=== PATIENT | female | born 1940 | race American Indian/Alaskan Native ===

== ENCOUNTER 2016-09-28 15:39 | Emergency (ER) | payer MEDICARE ==
[2016-09-28 17:01] VITALS: BP 138/86
--- NOTE | 2016-09-28 20:15 | Emergency Department Report ---
ED Rash HPI - HPI Chief Complaint: Skin Rash Stated Complaint: POSS SHINGLES RASH Duration: 3 Days Rash Symptoms: Yes Blistering, No Itching, No Facial Swelling, No Tongue/Oral Swelling, No Breathing Difficulties, No Choking Sensation, No Wheezing/Dyspnea, No Fever, No Lightheaded, No Malaise Severity: moderate Other History: 76-year-old female comes in for complaint of painful rash on her back coming around to her chest area. This rash started on Monday. She denies any fever or chills she is accompanied by her daughter that she lives with. ED Review of Systems ROS: Stated complaint: POSS SHINGLES RASH Other details as noted in HPI Constitutional: no symptoms reported Skin: rash. denies: pruritus Neurological: denies: headache ED Past Medical Hx - Past Medical History Hx Hypertension: Yes Hx Congestive Heart Failure: Yes (cardiomyopathy) Additional medical history: A-FIB / LEAKY VALVES/ CARDIOVASCULAR DISEASE - Surgical History Additional Surgical History: EXP LAPAROSCOPY, TUBAL LIGATION, HEART CATH - Social History Smoking Status: Former Smoker Substance Use Type: None - Medications Home Medications: Home Medications Medication Instructions Recorded Confirmed Last Taken Type ALBUTEROL Inhaler [ProAir HFA 2 puff IH QID PRN #1 inhalation 01/18/15 Unknown Rx Inhaler] Albuterol *Only Ed* [Proventil 2.5 mg IH Q4H PRN #25 nebu 01/18/15 Unknown Rx 0.5% NEBS] Azithromycin [Zithromax] 500 mg PO QDAY #3 tablet 01/18/15 Unknown Rx Prednisone [Prednisone 10 mg 10 mg PO .TAPER #1 tab.ds.pk 01/18/15 Unknown Rx (6-Day Pack, 21 Tabs)] Naproxen [Naprosyn TAB] 500 mg PO BID #60 tablet 09/28/16 Unknown Rx Valacyclovir HCl [Valtrex] 1,000 mg PO BID #20 tab 09/28/16 Unknown Rx oxyCODONE [Roxicodone TAB] 5 mg PO Q6HR PRN #6 tablet 09/28/16 Unknown Rx Rash Exam - Exam General: Vital signs noted. No distress. Alert and acting appropriately. Lungs: Yes Good Air Exchange Heart: Yes Regular Skin: Yes Bulla(e) (rashes on the right back to the right front not crossing the midline.) Other: Positive: Abdomen Normal, Neurologic Normal, Musculoskeletal Normal ED Course Vital Signs 09/28/16 16:58 Temperature 98.5 F Pulse Rate 95 H Respiratory 18 Rate Blood Pressure 138/86 O2 Sat by Pulse 97 Oximetry ED Medical Decision Making - Medical Decision Making Patient's been evaluated by this provider in fast track. Will place patient on valacyclovir for shingles. We'll have her follow-up with her primary care provider we will offer oxycodone and ibuprofen for pain control. Critical care attestation.: If time is entered above; I have spent that time in minutes in the direct care of this critically ill patient, excluding procedure time. ED Disposition Clinical Impression: Shingles rash Qualifiers: Herpes zoster complications: without complications Qualified Code(s): B02.9 - Zoster without complications Disposition: DISCHARGED TO HOME OR SELFCARE Is pt being admited?: No Does the pt Need Aspirin: No Condition: Stable Instructions: Herpes Zoster (ED) Additional Instructions: Complete all medications as prescribed. Very importantly to follow to primary care provider. Prescriptions: Naproxen [Naprosyn TAB] 500 mg PO BID #60 tablet oxyCODONE [Roxicodone TAB] 5 mg PO Q6HR PRN #6 tablet PRN Reason: Pain Valacyclovir HCl [Valtrex] 1,000 mg PO BID #20 tab Referrals: HARJIT MIRANDA MD [Primary Care Provider] - 3-5 Days
== END 2016-09-28 20:29 | disposition home or self-care (01) ==
LOC: ED 15:39
DX: B02.9 Zoster without complications (principal); I10 Essential (primary) hypertension; I50.9 Heart failure, unspecified; I48.91 Unspecified atrial fibrillation; Z87.891 Personal history of nicotine dependence
CPT/HCPCS: 99282

== ENCOUNTER 2018-03-29 10:00 | Inpatient (IN) | payer MEDICARE ==
[2018-03-29 11:37] LABS: Basophils % (Auto) 0.5 % (0.0-1.8); Eosinophils # (Auto) 0.1 K/mm3 (0.0-0.4); Eosinophils % (Auto) 1.7 % (0.0-4.3); Hematocrit 37.9 % (30.3-42.9); Hemoglobin 12.4 gm/dl (10.1-14.3); Lymphocytes # (Auto) 0.8 K/mm3 (1.2-5.4); Lymphocytes % (Auto) 12.4 % (13.4-35.0); Mean Corpuscular HGB Conc 33 % (30-34); Mean Corpuscular Hemoglobin 29 pg (28-32); Mean Corpuscular Volume 90 fl (79-97); Monocytes # (Auto) 0.6 K/mm3 (0.0-0.8); Monocytes % (Auto) 8.6 % (0.0-7.3); Platelet Count 110 K/mm3 (140-440); Red Cell Distribution Width 15.8 % (13.2-15.2)
--- NOTE | 2018-03-29 11:41 | Emergency Department Report ---
"ED General Adult HPI - General Chief complaint: Medical Clearance Stated complaint: DEFIB. ACTIVATED Time Seen by Provider: 03/29/18 11:03 Source: patient, EMS Mode of arrival: Stretcher Limitations: No Limitations - History of Present Illness Initial comments: 77-year-old female with a past medical history cardiac valve replacement 2 ( pig valve) defibrillator, PAD stent placement to bilateral lower extremities, atrial fibrillation (on coumadin), and crit myopathy presents to the hospital complaining of possible defibrillator discharge 2. This occurred just prior to arrival approximately 9 AM. Patient denied any preceding symptoms. She felt to back to back shots which cause discomfort in her chest associated with the shock. Patient has some mild lightheadedness and was startled after the shocks. She denies any persistent chest pain, nausea, vomiting, diaphoresis, syncope, or persistent lightheadedness. Defibrillator was placed 2.5 years ago and this is the first episode of discharge. She received a call 1 month ago from e|tab/mixer blender that she needed to have her defibrillator rechecked due to possible dysfunction. Her mixer blender is Dr. Anthony Calderon associated with [facility] - Related Data Previous Rx's Medication Instructions Recorded Last Taken Type ALBUTEROL Inhaler [ProAir HFA 2 puff IH QID PRN #1 inhalation 01/18/15 Unknown Rx Inhaler] Albuterol *Only Ed* [Proventil 2.5 mg IH Q4H PRN #25 nebu 01/18/15 Unknown Rx 0.5% NEBS] Azithromycin [Zithromax] 500 mg PO QDAY #3 tablet 01/18/15 Unknown Rx Prednisone [Prednisone 10 mg 10 mg PO .TAPER #1 tab.ds.pk 01/18/15 Unknown Rx (6-Day Pack, 21 Tabs)] Naproxen [Naprosyn TAB] 500 mg PO BID #60 tablet 09/28/16 Unknown Rx Valacyclovir HCl [Valtrex] 1,000 mg PO BID #20 tab 09/28/16 Unknown Rx oxyCODONE [Roxicodone TAB] 5 mg PO Q6HR PRN #6 tablet 09/28/16 Unknown Rx Allergies Allergy/AdvReac Type Severity Reaction Status Date / Time No Known Allergies Allergy Unverified 01/18/15 12:05 ED Review of Systems ROS: Stated complaint: DEFIB. ACTIVATED Other details as noted in HPI Comment: All other systems reviewed and negative ED Past Medical Hx - Past Medical History Hx Hypertension: Yes Hx Congestive Heart Failure: Yes (cardiomyopathy) Additional medical history: A-FIB / LEAKY VALVES/ CARDIOVASCULAR DISEASE. PAD - Surgical History Additional Surgical History: EXP LAPAROSCOPY, TUBAL LIGATION, HEART CATH. Bilateral leg stents secondary to PAD - Social History Smoking Status: Never Smoker Substance Use Type: None - Medications Home Medications: Home Medications Medication Instructions Recorded Confirmed Last Taken Type ALBUTEROL Inhaler [ProAir HFA 2 puff IH QID PRN #1 inhalation 01/18/15 Unknown Rx Inhaler] Albuterol *Only Ed* [Proventil 2.5 mg IH Q4H PRN #25 nebu 01/18/15 Unknown Rx 0.5% NEBS] Azithromycin [Zithromax] 500 mg PO QDAY #3 tablet 01/18/15 Unknown Rx Prednisone [Prednisone 10 mg 10 mg PO .TAPER #1 tab.ds.pk 01/18/15 Unknown Rx (6-Day Pack, 21 Tabs)] Naproxen [Naprosyn TAB] 500 mg PO BID #60 tablet 09/28/16 Unknown Rx Valacyclovir HCl [Valtrex] 1,000 mg PO BID #20 tab 09/28/16 Unknown Rx oxyCODONE [Roxicodone TAB] 5 mg PO Q6HR PRN #6 tablet 09/28/16 Unknown Rx ED Physical Exam - General Limitations: No Limitations - Other Other exam information: General: No limitations, patient is alert in no acute distress Head exam: Atraumatic, normocephalic Eyes exam: Normal appearance, pupils equal reactive to light, extraocular movements intact ENT: Moist mucous membrane, normal oropharynx Neck exam: Normal inspection, full range of motion, no meningismus nontender Respiratory exam: Clear to auscultation bilateral, no wheezes, rales, crackles. Sternotomy scar to chest wall Cardiovascular: Irregular rhythm, normal rate Abdomen: Soft, nondistended, and nontender, with normal bowel sounds, no rebound, or guarding Extremity: Full range of motion normal inspection no deformity Back: Normal Inspection, full range of motion, no tenderness Neurologic: Alert, oriented x3, cranial nerves intact, no motor or sensory deficit Psychiatric: normal affect, normal mood Skin: Warm, dry, intact ED Course Vital Signs 03/29/18 03/29/18 03/29/18 10:09 10:15 10:18 Temperature 97.7 F Pulse Rate 62 66 Respiratory 9 L 18 Rate Blood Pressure 136/64 136/64 O2 Sat by Pulse 91 98 98 Oximetry 03/29/18 03/29/18 03/29/18 10:30 10:45 11:00 Temperature Pulse Rate 63 64 88 Respiratory 12 18 22 Rate Blood Pressure 145/64 154/73 131/83 O2 Sat by Pulse 96 98 97 Oximetry 03/29/18 03/29/18 03/29/18 11:15 11:30 11:46 Temperature Pulse Rate 70 75 78 Respiratory 19 11 L 18 Rate Blood Pressure 139/73 147/81 95/74 O2 Sat by Pulse 97 98 97 Oximetry 03/29/18 03/29/18 03/29/18 12:00 12:15 12:30 Temperature Pulse Rate 82 68 67 Respiratory 21 22 17 Rate Blood Pressure 136/78 138/77 129/74 O2 Sat by Pulse 100 99 98 Oximetry 03/29/18 03/29/18 12:46 13:00 Temperature Pulse Rate 63 58 L Respiratory 18 29 H Rate Blood Pressure 123/69 125/67 O2 Sat by Pulse 98 97 Oximetry - Consultations Consultation #1: 03/29/18 14:12 case d/w [facility], [facility] admission. Still awaiting e|tab interrogation 03/29/18 15:50 interrogation revealed [facility] ED Medical Decision Making - Lab Data Result diagrams: 03/29/18 11:22 03/29/18 11:22 Lab Results 03/29/18 03/29/18 03/29/18 Range/Units 11:22 11:22 11:22 WBC 6.6 (4.5-11.0) K/mm3 RBC 4.20 (3.65-5.03) M/mm3 Hgb 12.4 (10.1-14.3) gm/dl Hct 37.9 (30.3-42.9) % MCV 90 (79-97) fl MCH 29 (28-32) pg MCHC 33 (30-34) % RDW 15.8 H (13.2-15.2) % Plt Count 110 L (140-440) K/mm3 Lymph % (Auto) 12.4 L (13.4-35.0) % Banks % (Auto) 8.6 H (0.0-7.3) % Eos % (Auto) 1.7 (0.0-4.3) % Baso % (Auto) 0.5 (0.0-1.8) % Lymph # 0.8 L (1.2-5.4) K/mm3 Banks # 0.6 (0.0-0.8) K/mm3 Eos # 0.1 (0.0-0.4) K/mm3 Baso # 0.0 (0.0-0.1) K/mm3 Seg Neutrophils % 76.8 H (40.0-70.0) % Seg Neutrophils # 5.1 (1.8-7.7) K/mm3 PT (12.2-14.9) Sec. INR (0.87-1.13) APTT (24.2-36.6) Sec. Sodium 143 (137-145) mmol/L Potassium 3.9 (3.6-5.0) mmol/L Chloride 103.8 (98-107) mmol/L Carbon Dioxide 22 (22-30) mmol/L Anion Gap 21 mmol/L BUN 11 (7-17) mg/dL Creatinine 0.9 (0.7-1.2) mg/dL Estimated GFR > 60 ml/min BUN/Creatinine Ratio 12 % Glucose 105 H (65-100) mg/dL Calcium 9.0 (8.4-10.2) mg/dL Magnesium 2.30 (1.7-2.3) mg/dL Total Creatine Kinase 106 (30-135) units/L CK-MB (CK-2) 1.5 (0.0-4.0) ng/mL CK-MB (CK-2) Rel Index 1.4 (0-4) Troponin T < 0.010 (0.00-0.029) ng/mL 03/29/18 Range/Units 11:43 WBC (4.5-11.0) K/mm3 RBC (3.65-5.03) M/mm3 Hgb (10.1-14.3) gm/dl Hct (30.3-42.9) % MCV (79-97) fl MCH (28-32) pg MCHC (30-34) % RDW (13.2-15.2) % Plt Count (140-440) K/mm3 Lymph % (Auto) (13.4-35.0) % Banks % (Auto) (0.0-7.3) % Eos % (Auto) (0.0-4.3) % Baso % (Auto) (0.0-1.8) % Lymph # (1.2-5.4) K/mm3 Banks # (0.0-0.8) K/mm3 Eos # (0.0-0.4) K/mm3 Baso # (0.0-0.1) K/mm3 Seg Neutrophils % (40.0-70.0) % Seg Neutrophils # (1.8-7.7) K/mm3 PT 33.7 H (12.2-14.9) Sec. INR 3.05 H (0.87-1.13) APTT 45.2 H (24.2-36.6) Sec. Sodium (137-145) mmol/L Potassium (3.6-5.0) mmol/L Chloride (98-107) mmol/L Carbon Dioxide (22-30) mmol/L Anion Gap mmol/L BUN (7-17) mg/dL Creatinine (0.7-1.2) mg/dL Estimated GFR ml/min BUN/Creatinine Ratio % Glucose (65-100) mg/dL Calcium (8.4-10.2) mg/dL Magnesium (1.7-2.3) mg/dL Total Creatine Kinase (30-135) units/L CK-MB (CK-2) (0.0-4.0) ng/mL CK-MB (CK-2) Rel Index (0-4) Troponin T (0.00-0.029) ng/mL - EKG Data -: EKG Interpreted by Me (afib rate 74, anteroseptal infarct) EKG shows normal: axis (qrs 75), QRS complexes (qrsd 98), ST-T waves (lateral leads repol abnl) Rate: normal - EKG Data When compared to previous EKG there are: no significant change - Medical Decision Making Patient had defibrillator discharged secondary to ventricular tachycardia. We'll admit to the hospital on cardiac floor cardiology has been consulted - Differential Diagnosis arrhythmia, defibrillated dysfunction, electrolyte abnormality Critical Care Time: No Critical care attestation.: If time is entered above; I have spent that time in minutes in the direct care of this critically ill patient, excluding procedure time. ED Disposition Clinical Impression: Defibrillator discharge, Anticoagulated on warfarin, Atrial fibrillation, Hx of prosthetic heart valve, V tach, Thrombocytopenia Disposition: OP ADMIT IP TO THIS HOSP Is pt being admited?: Yes Condition: Stable Time of Disposition: 15:12 (Dr Branch/hosp)"
[2018-03-29 12:02] LABS: BUN/Creatinine Ratio 12; Blood Urea Nitrogen 11 mg/dL (7-17); Hemolysis Index 10
[2018-03-29 12:04] LABS: Creatine Kinase MB 1.5 ng/mL (0.0-4.0)
[2018-03-29 12:29] LABS: INR 3.05 (0.87-1.13)
[2018-03-29 12:30] LABS: Partial Thromboplastin Time 45.2 Sec. (24.2-36.6)
--- NOTE | 2018-03-29 15:32 | Consultation ---
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 She is followed by Dr. Dre Calderon at [place]. She presented with c/o defibrillator shocks x 2. The shocks occurred just prior to arrival approximately 9 AM. Pt reports she has been in her normal state of health with no complaints. She was getting out of the shower when she noted the first and then second shock only seconds apart. Patient denies any preceding symptoms. Patient has some mild lightheadedness and was startled after the shots. She denies any persistent chest pain, SOB, nausea, vomiting, diaphoresis, syncope, or persistent lightheadedness. LHC done 08/2017 showed severely low cardiac output and severe systemic arterial hypertension. Severe TR contributing to poor forward cardiac output. Pt is a poor candidate for TV repair given her overall severe debility and worsening clinical dementia per Dr. Calderon. Echo done 08/2017 showed EF 20-25%, severely dilated LA and RA, normally functioning bioprosthetic aortic valve, LV mildly dilated, dilated IVC, mod to severe TR, bioprosthetic mitral valve well seated without regurgitation, mod mitral stenosis, mildly enlarged RV cavity size, mildly do mod reduced RV systolic function, RVSP 57.5mmHg. Past History Past Medical History: atrial fib, diabetes, heart failure, hyperlipidemia, PVD, renal failure, other (SAH) Past Surgical History: Other (AICD; MVR and AVR) Social history: lives with family. denies: smoking, alcohol abuse, prescription drug abuse Medications and Allergies Allergies Allergy/AdvReac Type Severity Reaction Status Date / Time No Known Allergies Allergy Unverified 01/18/15 12:05 Home Medications Medication Instructions Recorded Confirmed Last Taken Type ALBUTEROL Inhaler [ProAir HFA 2 puff IH QID PRN #1 inhalation 01/18/15 Unknown Rx Inhaler] Albuterol *Only Ed* [Proventil 2.5 mg IH Q4H PRN #25 nebu 01/18/15 Unknown Rx 0.5% NEBS] Azithromycin [Zithromax] 500 mg PO QDAY #3 tablet 01/18/15 Unknown Rx Prednisone [Prednisone 10 mg 10 mg PO .TAPER #1 tab.ds.pk 01/18/15 Unknown Rx (6-Day Pack, 21 Tabs)] Naproxen [Naprosyn TAB] 500 mg PO BID #60 tablet 09/28/16 Unknown Rx Valacyclovir HCl [Valtrex] 1,000 mg PO BID #20 tab 09/28/16 Unknown Rx oxyCODONE [Roxicodone TAB] 5 mg PO Q6HR PRN #6 tablet 09/28/16 Unknown Rx Review of Systems All systems: negative (AICD shock x 2) Cardiovascular: lightheadedness (resolved), no chest pain, no syncope Respiratory: no cough, no congestion, no wheezing, no pain on inspiration Gastrointestinal: no abdominal pain, no nausea, no vomiting, no diarrhea, no constipation, no change in bowel habits Genitourinary Female: no pelvic pain, no flank pain Musculoskeletal: no neck stiffness, no neck pain Integumentary: no rash, no pruritis, no redness, no sores, no wounds Neurological: no head injury, no paralysis, no weakness, no parathesias, no numbness, no tingling, no seizures, no syncope Psychiatric: no anxiety Endocrine: no cold intolerance, no heat intolerance Physical Examination Vital Signs Pulse Ox 91 03/29/18 10:09 General appearance: no acute distress HEENT: Positive: PERRL, Normocephaly, Mucus Membranes Moist Neck: Positive: neck supple, trachea midline Cardiac: Positive: irregularly irregular, S1/S2, Systolic Murmur Lungs: Positive: clear to auscultation Neuro: Positive: Grossly Intact Abdomen: Positive: Soft. Negative: Tender Skin: Positive: Clear. Negative: Rash, Wound Musculoskeletal: No Pain Extremities: Absent: edema Results 03/29/18 11:22 03/29/18 11:22 Cardiac Enzymes 03/29/18 Range/Units 11:22 CK-MB (CK-2) 1.5 (0.0-4.0) ng/mL Coagulation 03/29/18 Range/Units 11:43 PT 33.7 H (12.2-14.9) Sec. INR 3.05 H (0.87-1.13) APTT 45.2 H (24.2-36.6) Sec. CBC 03/29/18 Range/Units 11:22 WBC 6.6 (4.5-11.0) K/mm3 RBC 4.20 (3.65-5.03) M/mm3 Hgb 12.4 (10.1-14.3) gm/dl Hct 37.9 (30.3-42.9) % Plt Count 110 L (140-440) K/mm3 Lymph # 0.8 L (1.2-5.4) K/mm3 Kings # 0.6 (0.0-0.8) K/mm3 Eos # 0.1 (0.0-0.4) K/mm3 Baso # 0.0 (0.0-0.1) K/mm3 Comprehensive Metabolic Panel 03/29/18 Range/Units 11:22 Sodium 143 (137-145) mmol/L Potassium 3.9 (3.6-5.0) mmol/L Chloride 103.8 (98-107) mmol/L Carbon Dioxide 22 (22-30) mmol/L BUN 11 (7-17) mg/dL Creatinine 0.9 (0.7-1.2) mg/dL Glucose 105 H (65-100) mg/dL Calcium 9.0 (8.4-10.2) mg/dL - Imaging and Cardiology Echo: report reviewed ( 08/2017 showed EF 20-25%, severely dilated LA and RA, normally functioning bioprosthetic aortic valve, LV mildly dilated, dilated IVC , mod to severe TR, bioprosthetic mitral valve well seated without regurgitation , mod mitral stenosis, mildly enlarged RV cavity size, mildly do mod reduced RV systolic function, RVSP 57.5mmHg.) Cardiac cath: report reviewed (08/2017 showed severely low cardiac output and severe systemic arterial hypertension. Severe TR contributing to poor forward cardiac output. Pt is a poor candidate for TV repair given her overall severe debility and worsening clinical dementia per Dr. Calderon. 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 Electrolytes WNL. Obtain thyroid profile. Resume home cardiac regimen, including coumadin with tx INR 2-3. Monitor overnight on telemetry. Consider addition of amiodarone. Assessment and plan reviewed with pt and pt's daughter at bedside. The patient has been seen in conjunction with Dr. Killian who agrees with the assessment and plan of care.
[2018-03-29] MEDS ORDERED: TYLENOL PO PRN (16:16)
[2018-03-29] MEDS ORDERED: ZOFRAN IV PRN (16:16)
[2018-03-29] MEDS ORDERED: SODIUM CHLORIDE FLUSH SYRINGE 10 ML IV PRN (16:16)
--- NOTE | 2018-03-29 16:16 | History and Physical Report ---
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 Dre Calderon at [place] ----- presented with c/o defibrillator shocks x 2. The shocks occurred just prior to arrival approximately 9 AM. Pt reports she has been in her normal state of health with no complaints. She was getting out of the shower when she noted the first and then second shock only seconds apart. Patient denies any preceding symptoms. Patient has some mild lightheadedness and was startled after the shots. She denies any persistent chest pain, SOB, nausea, vomiting, diaphoresis , syncope, or persistent lightheadedness. LHC done 08/2017 showed severely low cardiac output and severe systemic arterial hypertension. Severe TR contributing to poor forward cardiac output. Pt is a poor candidate for TV repair given her overall severe debility and worsening clinical dementia per Dr. Calderon. Echo done 08/2017 showed EF 20-25%, severely dilated LA and RA, normally functioning bioprosthetic aortic valve, LV mildly dilated, dilated IVC, mod to severe TR, bioprosthetic mitral valve well seated without regurgitation, mod mitral stenosis, mildly enlarged RV cavity size, mildly do mod reduced RV systolic function, RVSP 57.5mmHg. Past History Past Medical History: atrial fib, diabetes, heart failure, hyperlipidemia, PVD, renal failure, other (SAH) Past Surgical History: Other (AICD; MVR and AVR) Social history: lives with family. denies: smoking, alcohol abuse, prescription drug abuse Review of Systems All systems: negative (AICD shock x 2) Cardiovascular: lightheadedness (resolved), no chest pain, no syncope Respiratory: no cough, no congestion, no wheezing, no pain on inspiration Gastrointestinal: no abdominal pain, no nausea, no vomiting, no diarrhea, no constipation, no change in bowel habits Genitourinary Female: no pelvic pain, no flank pain Musculoskeletal: no neck stiffness, no neck pain Integumentary: no rash, no pruritis, no redness, no sores, no wounds Neurological: no head injury, no paralysis, no weakness, no parathesias, no numbness, no tingling, no seizures, no syncope Psychiatric: no anxiety Endocrine: no cold intolerance, no heat intolerance Past History Past Medical History: atrial fib, diabetes, heart failure, hyperlipidemia, PVD, renal failure, other (SAH) Past Surgical History: Other (AICD; MVR and AVR) Social history: lives with family. denies: smoking, alcohol abuse, prescription drug abuse Medications and Allergies Allergies Allergy/AdvReac Type Severity Reaction Status Date / Time No Known Allergies Allergy Unverified 01/18/15 12:05 Home Medications Medication Instructions Recorded Confirmed Last Taken Type Amlodipine Besylate [Norvasc] 10 mg PO QDAY 03/29/18 03/29/18 Unknown History AtorvaSTATin [Lipitor] 20 mg PO QHS 03/29/18 03/29/18 03/28/18 History Estrogens, Conjugated [Premarin] 1 applicator VG BID 03/29/18 03/29/18 Unknown History Ferrous Sulfate [Iron] 325 mg PO DAILY 03/29/18 03/29/18 03/29/18 History Furosemide [Lasix TAB] 40 mg PO QDAY 03/29/18 03/29/18 03/29/18 History Hydralazine HCl 50 mg PO TID 03/29/18 03/29/18 03/29/18 History ISOSORBIDE MONOnitrate [Imdur ER] 60 mg PO QDAY 03/29/18 03/29/18 03/29/18 History Metoprolol Succinate [Toprol Xl] 100 mg PO QDAY 03/29/18 03/29/18 03/29/18 History Pantoprazole [Protonix] 40 mg PO QDAY 03/29/18 03/29/18 03/29/18 History Warfarin Sodium [Coumadin] 5 mg PO QDAY 03/29/18 03/29/18 03/28/18 History Exam - Constitutional Vitals: Temp Pulse Resp BP Pulse Ox 97.7 F 53 L 18 115/69 97 03/29/18 10:18 03/29/18 15:46 03/29/18 15:46 03/29/18 15:46 03/29/18 15:46 General appearance: Present: no acute distress, well-nourished - EENT Eyes: Present: PERRL ENT: hearing intact, clear oral mucosa - Neck Neck: Present: supple, normal ROM - Respiratory Respiratory effort: normal Respiratory: bilateral: CTA - Cardiovascular Heart rate: 78 Rhythm: irregularly irregular Heart Sounds: Present: S1 & S2. Absent: rub, click - Extremities Extremities: pulses intact, pulses symmetrical, No edema Peripheral Pulses: within normal limits - Abdominal General gastrointestinal: Present: soft, non-tender, non-distended, normal bowel sounds Female genitourinary: Present: normal - Rectal Rectal Exam: deferred - Integumentary Integumentary: Present: clear, warm, dry - Musculoskeletal Musculoskeletal: gait normal, strength equal bilaterally - Psychiatric Psychiatric: appropriate mood/affect, intact judgment & insight - Neurologic Neurologic: CNII-XII intact, moves all extremities - Allied Health Allied health notes reviewed: nursing, case management Results - Labs CBC & Chem 7: 03/30/18 05:50 03/29/18 11:22 Labs: Laboratory Last Values WBC 6.6 K/mm3 (4.5-11.0) 03/29/18 11:22 RBC 4.20 M/mm3 (3.65-5.03) 03/29/18 11:22 Hgb 12.4 gm/dl (10.1-14.3) 03/29/18 11:22 Hct 37.9 % (30.3-42.9) 03/29/18 11:22 MCV 90 fl (79-97) 03/29/18 11:22 MCH 29 pg (28-32) 03/29/18 11:22 MCHC 33 % (30-34) 03/29/18 11:22 RDW 15.8 % (13.2-15.2) H 03/29/18 11:22 Plt Count 110 K/mm3 (140-440) L 03/29/18 11:22 Lymph % (Auto) 12.4 % (13.4-35.0) L 03/29/18 11:22 [place] % (Auto) 8.6 % (0.0-7.3) H 03/29/18 11:22 Eos % (Auto) 1.7 % (0.0-4.3) 03/29/18 11:22 Baso % (Auto) 0.5 % (0.0-1.8) 03/29/18 11:22 Lymph # 0.8 K/mm3 (1.2-5.4) L 03/29/18 11:22 [place] # 0.6 K/mm3 (0.0-0.8) 03/29/18 11:22 Eos # 0.1 K/mm3 (0.0-0.4) 03/29/18 11:22 Baso # 0.0 K/mm3 (0.0-0.1) 03/29/18 11:22 Seg Neutrophils % 76.8 % (40.0-70.0) H 03/29/18 11:22 Seg Neutrophils # 5.1 K/mm3 (1.8-7.7) 03/29/18 11:22 PT 33.7 Sec. (12.2-14.9) H 03/29/18 11:43 INR 3.05 (0.87-1.13) H 03/29/18 11:43 APTT 45.2 Sec. (24.2-36.6) H 03/29/18 11:43 Sodium 143 mmol/L (137-145) 03/29/18 11:22 Potassium 3.9 mmol/L (3.6-5.0) 03/29/18 11:22 Chloride 103.8 mmol/L (98-107) 03/29/18 11:22 Carbon Dioxide 22 mmol/L (22-30) 03/29/18 11:22 Anion Gap 21 mmol/L 03/29/18 11:22 BUN 11 mg/dL (7-17) 03/29/18 11:22 Creatinine 0.9 mg/dL (0.7-1.2) 03/29/18 11:22 Estimated GFR > 60 ml/min 03/29/18 11:22 BUN/Creatinine Ratio 12 % 03/29/18 11:22 Glucose 105 mg/dL (65-100) H 03/29/18 11:22 Calcium 9.0 mg/dL (8.4-10.2) 03/29/18 11:22 Magnesium 2.30 mg/dL (1.7-2.3) 03/29/18 11:22 Total Creatine Kinase 106 units/L (30-135) 03/29/18 11:22 CK-MB (CK-2) 1.5 ng/mL (0.0-4.0) 03/29/18 11:22 CK-MB (CK-2) Rel Index 1.4 (0-4) 03/29/18 11:22 Troponin T < 0.010 ng/mL (0.00-0.029) 03/29/18 11:22 - Imaging and Cardiology EKG: report reviewed (Afib) Assessment and Plan Advance Directives: Yes (Full code) VTE prophylaxis?: Chemical Plan of care discussed with patient/family: Yes - Patient Problems (1) Defibrillator discharge Current Visit: Yes Status: Acute Plan to address problem: Confirmed by interrogation Discharge X 2 this AM Amiodarone added Obs for 24 hrs (2) CHF (congestive heart failure) Current Visit: Yes Status: Chronic Qualifiers: Heart failure type: combined systolic and diastolic Plan to address problem: Cont Lasix (3) Anticoagulated on warfarin Current Visit: Yes Status: Chronic Plan to address problem: Adequate-3.05 INR (4) Atrial fibrillation Current Visit: Yes Status: Chronic Qualifiers: Atrial fibrillation type: chronic Qualified Code(s): I48.2 - Chronic atrial fibrillation Plan to address problem: Cont Coumadin (5) HTN (hypertension) Current Visit: Yes Status: Chronic Qualifiers: Hypertension type: essential hypertension Qualified Code(s): I10 - Essential (primary) hypertension Plan to address problem: Cont Antihypertensives (6) GERD (gastroesophageal reflux disease) Current Visit: Yes Status: Chronic Qualifiers: Esophagitis presence: without esophagitis Qualified Code(s): K21.9 - Gastro -esophageal reflux disease without esophagitis Plan to address problem: Cont PPI's (7) HLD (hyperlipidemia) Current Visit: Yes Status: Chronic Qualifiers: Hyperlipidemia type: mixed hyperlipidemia Qualified Code(s): E78.2 - Mixed hyperlipidemia Plan to address problem: On Statins (8) DVT prophylaxis Current Visit: Yes Status: Acute Plan to address problem: On Coumadin-Adequate anticoagulation
[2018-03-29] MEDS ORDERED: PERCOCET 5/325 PO PRN (16:19)
[2018-03-29] MEDS ORDERED: NORCO 5/325 PO PRN (16:19)
[2018-03-29] MEDS ORDERED: NACL 0.9% 1000 ML 1,000 ML IV SCH (17:00)
[2018-03-29] MEDS: SODIUM CHLORIDE FLUSH SYRINGE 10 ML IV SCH (21:57)
[2018-03-30 07:02] LABS: Basophils % (Auto) 0.9 % (0.0-1.8); Eosinophils # (Auto) 0.2 K/mm3 (0.0-0.4); Eosinophils % (Auto) 3.5 % (0.0-4.3); Hematocrit 38.3 % (30.3-42.9); Hemoglobin 12.9 gm/dl (10.1-14.3); Lymphocytes # (Auto) 1.1 K/mm3 (1.2-5.4); Lymphocytes % (Auto) 23.6 % (13.4-35.0); Mean Corpuscular HGB Conc 34 % (30-34); Mean Corpuscular Hemoglobin 30 pg (28-32); Mean Corpuscular Volume 89 fl (79-97); Monocytes # (Auto) 0.6 K/mm3 (0.0-0.8); Monocytes % (Auto) 12.1 % (0.0-7.3); Platelet Count 106 K/mm3 (140-440); Red Blood Count 4.32 M/mm3 (3.65-5.03); Red Cell Distribution Width 15.8 % (13.2-15.2)
[2018-03-30 07:32] LABS: BUN/Creatinine Ratio 13; Blood Urea Nitrogen 10 mg/dL (7-17); Calcium 8.9 mg/dL (8.4-10.2); Hemolysis Index 10
[2018-03-30] MEDS ORDERED: NON-FORMULARY (Hydralazine Hcl [Hydralazine Hcl] 50 MG) PO SCH (08:00)
[2018-03-30] MEDS ORDERED: COUMADIN PO SCH (10:00)
[2018-03-30] MEDS ORDERED: PROTONIX PO SCH (10:00)
[2018-03-30] MEDS ORDERED: POTASSIUM CHLORIDE FEEDTUBE SCH (10:00)
[2018-03-30] MEDS ORDERED: PREMARIN VG SCH (10:00)
--- NOTE | 2018-03-30 10:50 | Progress Note ---
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 Will replace and recheck K+ level this afternoon. Pending serum K+ normalizes, pt may discharge home this afternoon from cardiology standpoint. Cont home cardiac regimen, including coumadin with tx INR 2-3. Recommend pt follow up with her primary quarter supervisor, Dr. Dre Calderon at [place] , within 1-2 weeks of hospital discharge. Assessment and plan reviewed with pt at bedside. The patient has been seen in conjunction with Dr. Killian who agrees with the assessment and plan of care. Subjective Date of service: 03/30/18 Principal diagnosis: VT s/p AICD shock Interval history: Pt resting comfortably in bed, no current complaints. tele reviewed - no arrhythmias noted overnight. Objective Last Vital Signs Temp 97.2 F L 03/30/18 04:24 Pulse 56 L 03/30/18 04:24 Resp 18 03/30/18 04:24 BP 135/79 03/30/18 04:24 Pulse Ox 99 03/30/18 04:24 - Physical Examination General: No Apparent Distress HEENT: Positive: PERRL, Normocephaly, Mucus Membranes Moist Neck: Positive: neck supple, trachea midline Cardiac: Positive: irregularly irregular, S1/S2, Systolic Murmur Lungs: Positive: Decreased Breath Sounds Neuro: Positive: Grossly Intact Abdomen: Positive: Soft. Negative: Tender Skin: Positive: Clear. Negative: Rash, Wound Musculoskeletal: No Pain Extremities: Absent: edema - Labs and Meds Cardiac Enzymes 03/29/18 Range/Units 11:22 CK-MB (CK-2) 1.5 (0.0-4.0) ng/mL Coagulation 03/29/18 Range/Units 11:43 PT 33.7 H (12.2-14.9) Sec. INR 3.05 H (0.87-1.13) APTT 45.2 H (24.2-36.6) Sec. CBC 03/29/18 03/30/18 Range/Units 11:22 05:50 WBC 6.6 4.6 (4.5-11.0) K/mm3 RBC 4.20 4.32 (3.65-5.03) M/mm3 Hgb 12.4 12.9 (10.1-14.3) gm/dl Hct 37.9 38.3 (30.3-42.9) % Plt Count 110 L 106 L (140-440) K/mm3 Lymph # 0.8 L 1.1 L (1.2-5.4) K/mm3 [place] # 0.6 0.6 (0.0-0.8) K/mm3 Eos # 0.1 0.2 (0.0-0.4) K/mm3 Baso # 0.0 0.0 (0.0-0.1) K/mm3 Comprehensive Metabolic Panel 03/29/18 03/30/18 Range/Units 11:22 05:50 Sodium 143 144 (137-145) mmol/L Potassium 3.9 2.9 L* D (3.6-5.0) mmol/L Chloride 103.8 104.8 (98-107) mmol/L Carbon Dioxide 22 27 (22-30) mmol/L BUN 11 10 (7-17) mg/dL Creatinine 0.9 0.8 (0.7-1.2) mg/dL Glucose 105 H 91 (65-100) mg/dL Calcium 9.0 8.9 (8.4-10.2) mg/dL - Imaging and Cardiology EKG: report reviewed (Afib) Echo: report reviewed ( 08/2017 showed EF 20-25%, severely dilated LA and RA, normally functioning bioprosthetic aortic valve, LV mildly dilated, dilated IVC , mod to severe TR, bioprosthetic mitral valve well seated without regurgitation , mod mitral stenosis, mildly enlarged RV cavity size, mildly do mod reduced RV systolic function, RVSP 57.5mmHg.) Cardiac cath: report reviewed (08/2017 showed severely low cardiac output and severe systemic arterial hypertension. Severe TR contributing to poor forward cardiac output. Pt is a poor candidate for TV repair given her overall severe debility and worsening clinical dementia per Dr. Calderon. ) - Telemetry EKG Rhythm: Atrial Fibrillation
[2018-03-30] MEDS: SODIUM CHLORIDE FLUSH SYRINGE 10 ML IV SCH ×2 (10:51→21:27)
[2018-03-30] MEDS ORDERED: K-DUR PO ONE (10:54)
[2018-03-30] MEDS ORDERED: NORVASC PO SCH (11:00)
[2018-03-30] MEDS ORDERED: LASIX PO SCH (11:00)
[2018-03-30] MEDS ORDERED: IMDUR PO SCH (11:00)
[2018-03-30] MEDS ORDERED: FEOSOL PO SCH (11:00)
[2018-03-30] MEDS: APRESOLINE PO SCH ×2 (13:26→21:25)
[2018-03-30] MEDS: TOPROL XL PO SCH ×2 (13:27→16:54)
[2018-03-30] MEDS ORDERED: POTASSIUM CHLORIDE PO SCH ×2 (14:00→17:00)
--- NOTE | 2018-03-30 18:03 | Progress Note ---
Assessment and Plan - Patient Problems (1) PVD (peripheral vascular disease) Current Visit: Yes Status: Acute Plan to address problem: With severe PVD at present not a candidate for surgical intervention. (2) V tach Current Visit: Yes Status: Acute Plan to address problem: Patient with stable angina status post AICD shock 2. Working diagnosis is etiology hypokalemia. We need to correct potassium magnesium prior to discharge. (3) Anticoagulated on warfarin Current Visit: Yes Status: Chronic Plan to address problem: Patient anticoagulated with warfarin. INR therapeutic. He stable for discharge when potassium is normal. (4) Atrial fibrillation Current Visit: Yes Status: Chronic Qualifiers: Atrial fibrillation type: chronic Qualified Code(s): I48.2 - Chronic atrial fibrillation Plan to address problem: Currently on Coumadin levels are therapeutic. (5) CHF (congestive heart failure) Current Visit: Yes Status: Chronic Qualifiers: Heart failure type: combined systolic and diastolic Plan to address problem: Patient has severe CHF with ejection fraction of 20-25%. Currently well compensated. Patient on Lasix diuretics and low-dose beta clau. (6) HLD (hyperlipidemia) Current Visit: Yes Status: Chronic Qualifiers: Hyperlipidemia type: mixed hyperlipidemia Qualified Code(s): E78.2 - Mixed hyperlipidemia (7) HTN (hypertension) Current Visit: Yes Status: Chronic Qualifiers: Hypertension type: essential hypertension Qualified Code(s): I10 - Essential (primary) hypertension History Interval history: She states after you good. No new concerns this time no chest pain no nausea or vomiting. Hospitalist Physical - Constitutional Vitals: Temp Pulse Resp BP Pulse Ox 97.2 F L 56 L 18 135/79 99 03/30/18 04:24 03/30/18 16:54 03/30/18 04:24 03/30/18 04:24 03/30/18 04:24 General appearance: Present: no acute distress, well-nourished - EENT Eyes: Present: PERRL, EOM intact ENT: dentition normal, oropharyngeal erythema, poor dentition, thrush - Neck Neck: Present: supple, normal ROM - Respiratory Respiratory: bilateral: CTA (U rhonchi) - Cardiovascular Rhythm: other (faint) - Extremities Extremities: no ischemia, pulses intact, pulses symmetrical, No edema, normal temperature Peripheral Pulses: within normal limits - Abdominal General gastrointestinal: soft, non-tender, non-distended, normal bowel sounds - Psychiatric Psychiatric: appropriate mood/affect, intact judgment & insight - Neurologic Neurologic: CNII-XII intact, no focal deficits, moves all extremities Results - Labs CBC & Chem 7: 03/30/18 05:50 03/30/18 16:38 Labs: Laboratory Last Values WBC 4.6 K/mm3 (4.5-11.0) 03/30/18 05:50 RBC 4.32 M/mm3 (3.65-5.03) 03/30/18 05:50 Hgb 12.9 gm/dl (10.1-14.3) 03/30/18 05:50 Hct 38.3 % (30.3-42.9) 03/30/18 05:50 MCV 89 fl (79-97) 03/30/18 05:50 MCH 30 pg (28-32) 03/30/18 05:50 MCHC 34 % (30-34) 03/30/18 05:50 RDW 15.8 % (13.2-15.2) H 03/30/18 05:50 Plt Count 106 K/mm3 (140-440) L 03/30/18 05:50 Lymph % (Auto) 23.6 % (13.4-35.0) 03/30/18 05:50 [place] % (Auto) 12.1 % (0.0-7.3) H 03/30/18 05:50 Eos % (Auto) 3.5 % (0.0-4.3) 03/30/18 05:50 Baso % (Auto) 0.9 % (0.0-1.8) 03/30/18 05:50 Lymph # 1.1 K/mm3 (1.2-5.4) L 03/30/18 05:50 [place] # 0.6 K/mm3 (0.0-0.8) 03/30/18 05:50 Eos # 0.2 K/mm3 (0.0-0.4) 03/30/18 05:50 Baso # 0.0 K/mm3 (0.0-0.1) 03/30/18 05:50 Seg Neutrophils % 59.9 % (40.0-70.0) 03/30/18 05:50 Seg Neutrophils # 2.7 K/mm3 (1.8-7.7) 03/30/18 05:50 PT 33.7 Sec. (12.2-14.9) H 03/29/18 11:43 INR 3.05 (0.87-1.13) H 03/29/18 11:43 APTT 45.2 Sec. (24.2-36.6) H 03/29/18 11:43 Sodium 144 mmol/L (137-145) 03/30/18 05:50 Potassium 3.5 mmol/L (3.6-5.0) L D 03/30/18 16:38 Chloride 104.8 mmol/L (98-107) 03/30/18 05:50 Carbon Dioxide 27 mmol/L (22-30) 03/30/18 05:50 Anion Gap 15 mmol/L 03/30/18 05:50 BUN 10 mg/dL (7-17) 03/30/18 05:50 Creatinine 0.8 mg/dL (0.7-1.2) 03/30/18 05:50 Estimated GFR > 60 ml/min 03/30/18 05:50 BUN/Creatinine Ratio 13 % 03/30/18 05:50 Glucose 91 mg/dL (65-100) 03/30/18 05:50 Hemoglobin A1c 5.9 % (4-6) 03/29/18 11:22 Calcium 8.9 mg/dL (8.4-10.2) 03/30/18 05:50 Magnesium 2.30 mg/dL (1.7-2.3) 03/29/18 11:22 Total Creatine Kinase 106 units/L (30-135) 03/29/18 11:22 CK-MB (CK-2) 1.5 ng/mL (0.0-4.0) 03/29/18 11:22 CK-MB (CK-2) Rel Index 1.4 (0-4) 03/29/18 11:22 Troponin T < 0.010 ng/mL (0.00-0.029) 03/29/18 11:22 TSH 1.390 mlU/mL (0.270-4.200) 03/29/18 16:09 Free T4 1.28 ng/dL (0.76-1.46) 03/29/18 16:09
[2018-03-30 21:26] VITALS: BP 121/70
== END 2018-03-30 22:15 | disposition home or self-care (01) | DRG 641 ==
LOC: ED 10:00 → 4A 16:16
PROVIDERS: ADMIT Internal Medicine; ATTEND Internal Medicine
PROC: 4B02XTZ Measurement of Cardiac Defibrillator, External Approach (ICD-10-PCS; principal; 2018-03-29)
DX: E87.6 Hypokalemia (principal); I47.2 Ventricular tachycardia; I50.42 Chronic combined systolic (congestive) and diastolic (congestive) heart failure; I42.9 Cardiomyopathy, unspecified; I13.0 Hypertensive heart and chronic kidney disease with heart failure and stage 1 through stage 4 chronic kidney disease, or unspecified chronic kidney disease; D69.6 Thrombocytopenia, unspecified; I48.2 Chronic atrial fibrillation; E11.51 Type 2 diabetes mellitus with diabetic peripheral angiopathy without gangrene; N18.9 Chronic kidney disease, unspecified; I20.9 Angina pectoris, unspecified; E78.2 Mixed hyperlipidemia; Z95.3 Presence of xenogenic heart valve; Z95.820 Peripheral vascular angioplasty status with implants and grafts; Z79.01 Long term (current) use of anticoagulants; Z79.51 Long term (current) use of inhaled steroids; Z79.899 Other long term (current) drug therapy; Z79.84 Long term (current) use of oral hypoglycemic drugs
CPT/HCPCS: 36415; 80048; 82550; 82553; 83036; 83735; 84132; 84439; 84443; 84484; 85025; 85610; 85730; 93005; 93010; A9270-GY; J7030

== ENCOUNTER 2018-11-29 15:31 | Inpatient (IN) | payer MEDICARE ==
--- NOTE | 2018-11-29 16:07 | Emergency Department Report ---
Blank Doc - Documentation Documentation: 78 y o female presents with cough, sinus, runny nose x 11 days, states she thin ks its the pollen but sxs are getting worse denies cp
--- NOTE | 2018-11-29 18:12 | XRay Report ---
PROCEDURE: XR CHEST ROUTINE 2V TECHNIQUE: PA and lateral chest HISTORY: cough/URI COMPARISONS: No prior radiographs FINDINGS: The cardiac silhouette is enlarged. Status post median sternotomy. Pacemaker overlying the left lower thorax. There is a large partially loculated right pleural effusion. Confluent density in the right lung base which may represent airspace consolidation and or atelectasi s. The pulmonary vasculature is within normal limits. IMPRESSION: Partially loculated large right pleural effusion. Confluent density in the right lung base which may represent airspace consolidation and or atelectasi s. Cardiomegaly. Consider further evaluation with CT if clinically indicated.. This document is electronically signed by Leo Tran MD., November 29 2018 06:10:44 PM ET
--- NOTE | 2018-11-29 21:33 | Emergency Department Report ---
ED Shortness of Breath HPI - General Chief Complaint: Dyspnea/Respdistress Stated Complaint: SOB Time Seen by Provider: 11/29/18 16:04 Source: patient Mode of arrival: Ambulatory Limitations: No Limitations - History of Present Illness Initial Comments: 78-year-old female with history of Afib, CHF with AICD, CKD presents to ED with complaint of shortness of breath. The patient reports worsening dyspnea on exertion over the last few days. Denies fever, cough, chest pain, lower extremity swelling/ pain. Systems Qa Analyst: Dre Calderon MD Complaint: shortness of breath -: days(s) (11) Severity: moderate Consistency: intermittent Improves With: rest Worsens With: exertion Known History Of: congestive heart failure Treatments Prior to Arrival: none - Related Data Home Oxygen Therapy: No Home Medications Medication Instructions Recorded Confirmed Last Taken Amlodipine Besylate [Norvasc] 10 mg PO QDAY 03/29/18 03/29/18 Unknown AtorvaSTATin [Lipitor] 20 mg PO QHS 03/29/18 03/29/18 03/28/18 Estrogens, Conjugated [Premarin] 1 applicator VG BID 03/29/18 03/29/18 Unknown Ferrous Sulfate [Iron] 325 mg PO DAILY 03/29/18 03/29/18 03/29/18 Furosemide [Lasix TAB] 40 mg PO QDAY 03/29/18 03/29/18 03/29/18 Hydralazine HCl 50 mg PO TID 03/29/18 03/29/18 03/29/18 ISOSORBIDE MONOnitrate [Imdur ER] 60 mg PO QDAY 03/29/18 03/29/18 03/29/18 Metoprolol Succinate [Toprol Xl] 100 mg PO QDAY 03/29/18 03/29/18 03/29/18 Pantoprazole [Protonix] 40 mg PO QDAY 03/29/18 03/29/18 03/29/18 Warfarin Sodium [Coumadin] 5 mg PO QDAY 03/29/18 03/29/18 03/28/18 Allergies Allergy/AdvReac Type Severity Reaction Status Date / Time albuterol Allergy Unknown Verified 11/29/18 15:33 heparin Allergy Unknown Verified 11/29/18 15:33 ED Review of Systems ROS: Stated complaint: SOB Other details as noted in HPI Comment: All other systems reviewed and negative Constitutional: denies: chills, fever Respiratory: shortness of breath, SOB with exertion. denies: cough Cardiovascular: palpitations. denies: chest pain Musculoskeletal: other ED Past Medical Hx - Past Medical History Hx Hypertension: Yes Hx Heart Attack/AMI: Yes Hx Congestive Heart Failure: Yes Hx Diabetes: Yes Additional medical history: A-FIB / LEAKY VALVES/ CARDIOVASCULAR DISEASE. PAD - Surgical History Hx Open Heart Surgery: Yes Hx Internal Defibrillator: Yes Additional Surgical History: EXP LAPAROSCOPY, TUBAL LIGATION, HEART CATH. Bilateral leg stents secondary to PAD - Social History Smoking Status: Former Smoker Substance Use Type: None - Medications Home Medications: Home Medications Medication Instructions Recorded Confirmed Last Taken Type Amlodipine Besylate [Norvasc] 10 mg PO QDAY 03/29/18 03/29/18 Unknown History AtorvaSTATin [Lipitor] 20 mg PO QHS 03/29/18 03/29/18 03/28/18 History Estrogens, Conjugated [Premarin] 1 applicator VG BID 03/29/18 03/29/18 Unknown History Ferrous Sulfate [Iron] 325 mg PO DAILY 03/29/18 03/29/18 03/29/18 History Furosemide [Lasix TAB] 40 mg PO QDAY 03/29/18 03/29/18 03/29/18 History Hydralazine HCl 50 mg PO TID 03/29/18 03/29/18 03/29/18 History ISOSORBIDE MONOnitrate [Imdur ER] 60 mg PO QDAY 03/29/18 03/29/18 03/29/18 History Metoprolol Succinate [Toprol Xl] 100 mg PO QDAY 03/29/18 03/29/18 03/29/18 History Pantoprazole [Protonix] 40 mg PO QDAY 03/29/18 03/29/18 03/29/18 History Warfarin Sodium [Coumadin] 5 mg PO QDAY 03/29/18 03/29/18 03/28/18 History ED Physical Exam - General Limitations: No Limitations ED Course Vital Signs 11/29/18 11/29/18 11/29/18 16:03 22:42 22:45 Temperature 97.4 F L Pulse Rate 77 65 Respiratory 22 19 16 Rate Blood Pressure 140/89 137/78 O2 Sat by Pulse 98 99 Oximetry 11/29/18 11/29/18 23:00 23:15 Temperature Pulse Rate 62 60 Respiratory 18 23 Rate Blood Pressure 144/67 127/68 O2 Sat by Pulse 96 98 Oximetry ED Medical Decision Making - Lab Data Result diagrams: 11/29/18 21:27 11/29/18 22:39 - EKG Data -: EKG Interpreted by Me EKG shows normal: axis, intervals, QRS complexes, ST-T waves Rate: normal - EKG Data Interpretation: no acute changes, other (Afib) - Radiology Data Radiology results: report reviewed, image reviewed - Medical Decision Making 78-year-old female with dyspnea on exertion. Vital signs normal. O2 sats normal. Chest x-ray shows partially loculated right pleural effusion with possible infiltrate present. WBC's normal, patient afebrile. Will cover with dose of cefepime for possible pneumonia. Levaquin initially ordered, however, there is an interaction w/pt's coumadin, so antibiotic was changed. Spoke w/ hospitalist, Dr Sorenson, for admission. - Differential Diagnosis pulm edema, pneumonia, ACS Critical care attestation.: If time is entered above; I have spent that time in minutes in the direct care of this critically ill patient, excluding procedure time. ED Disposition Clinical Impression: Loculated pleural effusion Disposition: DC-09 OP ADMIT IP TO THIS HOSP Is pt being admited?: Yes Condition: Stable Referrals: PRIMARY CARE, [Primary Care Provider] - 3-5 Days Time of Disposition: 23:44
[2018-11-29 21:52] LABS: INR 2.2 (0.87-1.13)
[2018-11-29 21:58] LABS: BUN/Creatinine Ratio 7; Blood Urea Nitrogen 6 mg/dL (7-17); Calcium 9.4 mg/dL (8.4-10.2); Hemolysis Index 188
[2018-11-29 22:24] LABS: Basophils # (Auto) 0.1 K/mm3 (0.0-0.1); Eosinophils # (Auto) 0.1 K/mm3 (0.0-0.4); Eosinophils % (Auto) 2.3 % (0.0-4.3); Hematocrit 38.9 % (30.3-42.9); Hemoglobin 12.8 gm/dl (10.1-14.3); Lymphocytes # (Auto) 1.2 K/mm3 (1.2-5.4); Lymphocytes % (Auto) 22.7 % (13.4-35.0); Mean Corpuscular HGB Conc 33 % (30-34); Mean Corpuscular Volume 92 fl (79-97); Monocytes # (Auto) 0.5 K/mm3 (0.0-0.8); Monocytes % (Auto) 10.2 % (0.0-7.3); Platelet Count 147 K/mm3 (140-440); Red Blood Count 4.26 M/mm3 (3.65-5.03); Red Cell Distribution Width 17.2 % (13.2-15.2)
[2018-11-29 22:53] LABS: Bilirubin,Urine NEG (Negative); Blood,Urine NEG (Negative); Color,Urine Straw (Yellow); Urobilinogen,Urine < 2.0 mg/dL (<2.0); WBC,Urine < 1.0 /HPF (0.0-6.0)
[2018-11-29] MEDS ORDERED: LASIX IV ONE (22:53)
[2018-11-29] MEDS ORDERED: LEVAQUIN 750MG/150ML 750 MG/150 ML BAG IV ONE (22:53)
[2018-11-30] MEDS: MAXIPIME/NS 1 GM/100 ML 1 GM/100 ML BAG IV ONE ×2 (01:14→01:16)
[2018-11-30] MEDS ORDERED: SODIUM CHLORIDE FLUSH SYRINGE 10 ML IV PRN (02:14)
[2018-11-30] MEDS ORDERED: ZOFRAN IV PRN (02:14)
[2018-11-30] MEDS ORDERED: DULCOLAX PR PRN (02:19)
--- NOTE | 2018-11-30 03:24 | History and Physical Report ---
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 She says she started to cough yesterday- she is unable to bring up any phlegm but she says she feels it dripping behind throat. She reports having Chronic Allergic Rhinitis for which she sometimes takes Mucinex. She reports rhinorheeShe denies any fever, chills, N, V, Orthopnea, PND or increase in LE, dysuria, melena, hem atochezia but she endorses polyuria. She reports that on 11/19 she was treated with an oral Antibiotic X 5 days for a UTI A CXR in the ED review large loculated pleural effusion. on 11/30/18, [facility] portedly called the pt to inform pt and daughter that [employer] ( [employer]) fired on 11/20 and that pt was not aware of this firing. None since thten. She says she ambulates fine and she quit tobacco a while ago. In the ED, she was found comfortable and on RA. Past History Past Medical History: atrial fib, CAD, hypertension. denies: hyperthyroidism Social history: lives with family. denies: smoking Family history: hypertension Medications and Allergies Allergies Allergy/AdvReac Type Severity Reaction Status Date / Time albuterol Allergy Unknown Verified 11/29/18 15:33 heparin Allergy Unknown Verified 11/29/18 15:33 Home Medications Medication Instructions Recorded Confirmed Last Taken Type Amlodipine Besylate [Norvasc] 10 mg PO QDAY 03/29/18 03/29/18 Unknown History AtorvaSTATin [Lipitor] 20 mg PO QHS 03/29/18 03/29/18 03/28/18 History Estrogens, Conjugated [Premarin] 1 applicator VG BID 03/29/18 03/29/18 Unknown History Ferrous Sulfate [Iron] 325 mg PO DAILY 03/29/18 03/29/18 03/29/18 History Furosemide [Lasix TAB] 40 mg PO QDAY 03/29/18 03/29/18 03/29/18 History Hydralazine HCl 50 mg PO TID 03/29/18 03/29/18 03/29/18 History ISOSORBIDE MONOnitrate [Imdur ER] 60 mg PO QDAY 03/29/18 03/29/18 03/29/18 History Metoprolol Succinate [Toprol Xl] 100 mg PO QDAY 03/29/18 03/29/18 03/29/18 History Pantoprazole [Protonix] 40 mg PO QDAY 03/29/18 03/29/18 03/29/18 History Warfarin Sodium [Coumadin] 5 mg PO QDAY 03/29/18 03/29/18 03/28/18 History Active Meds: Active Medications Acetaminophen (Tylenol) 650 mg PO Q4H PRN PRN Reason: Pain MILD(1-3)/Fever >100.5/POLK Albuterol/Ipratropium (Duoneb *Not For Prn Use*) 1 ampul IH Q6HRT [facility] Amlodipine Besylate (Norvasc) 10 mg PO QDAY [facility] Atorvastatin Calcium (Lipitor) 20 mg PO QHS [facility] Bisacodyl (Dulcolax) 10 mg NC QDAY PRN PRN Reason: Constipation unrelieved by MOM Estrogens Conjugated (Premarin) applic VG BID [facility] Ferrous Sulfate (Feosol) 325 mg PO DAILY [facility] Guaifenesin (Mucinex Er) 600 mg PO BID [facility] Hydralazine HCl (Apresoline) 50 mg PO TID [facility] Metoprolol Succinate (Toprol Xl) 100 mg PO QDAY [facility] Ondansetron HCl (Zofran) 4 mg IV Q8H PRN PRN Reason: Nausea And Vomiting Oxymetazoline HCl (Afrin) 2 spray NS BID [facility] Stop: 12/03/18 02:59 Pantoprazole Sodium (Protonix) 40 mg PO QDAY [facility] Senna (Senokot) 8.6 mg PO Q24HR [facility] Sodium Chloride (Sodium Chloride Flush Syringe 10 Ml) 10 ml IV BID [facility] Sodium Chloride (Sodium Chloride Flush Syringe 10 Ml) 10 ml IV PRN PRN PRN Reason: LINE FLUSH Review of Systems All systems: negative Respiratory: cough, cough with sputum, shortness of breath, congestion Exam - Constitutional Vitals: Temp Pulse Resp BP Pulse Ox 97.4 F L 60 16 136/70 97 11/29/18 16:03 11/30/18 01:15 11/30/18 01:15 11/30/18 01:15 11/30/18 01:15 General appearance: Present: no acute distress, well-nourished - EENT Eyes: Present: PERRL ENT: hearing intact, clear oral mucosa - Neck Neck: Present: supple, normal ROM - Respiratory Respiratory effort: normal Respiratory: right: rhonchi, left: CTA, diminished, negative: rales, wheezing - Cardiovascular Heart Sounds: Present: S1 & S2. Absent: rub, click Results - Labs CBC & Chem 7: 11/29/18 21:27 11/29/18 22:39 Labs: Laboratory Last Values WBC 5.2 K/mm3 (4.5-11.0) 11/29/18 21: RBC 4.26 M/mm3 (3.65-5.03) 11/29/18 21: Hgb 12.8 gm/dl (10.1-14.3) 11/29/18 21: Hct 38.9 % (30.3-42.9) 11/29/18 21: MCV 92 fl (79-97) 11/29/18 21: MCH 30 pg (28-32) 11/29/18 21: MCHC 33 % (30-34) 11/29/18 21: RDW 17.2 % (13.2-15.2) H 11/29/18 21: Plt Count 147 K/mm3 (140-440) 11/29/18 21: Lymph % (Auto) 22.7 % (13.4-35.0) 11/29/18 21: [place] % (Auto) 10.2 % (0.0-7.3) H 11/29/18 21: Eos % (Auto) 2.3 % (0.0-4.3) 11/29/18 21: Baso % (Auto) 1.0 % (0.0-1.8) 11/29/18: Lymph # 1.2 K/mm3 (1.2-5.4) 11/29/18 21: [place] # 0.5 K/mm3 (0.0-0.8) 11/29/18 21: Eos # 0.1 K/mm3 (0.0-0.4) 11/29/18 21: Baso # 0.1 K/mm3 (0.0-0.1) 11/29/18 21:27 Seg Neutrophils % 63.8 % (40.0-70.0) 11/29/18 21: Seg Neutrophils # 3.3 K/mm3 (1.8-7.7) 11/29/18 21:27 PT 25.9 Sec. (12.2-14.9) H 11/29/18 21: INR 2.20 (0.87-1.13) H 11/29/18 21:27 APTT 39.0 Sec. (24.2-36.6) H 11/29/18 21:27 Sodium 139 mmol/L (137-145) 11/29/18 21: Potassium 3.8 mmol/L (3.6-5.0) D 11/29/18 22:39 Chloride 103.3 mmol/L (98-107) 11/29/18 21: Carbon Dioxide 23 mmol/L (22-30) 11/29/18 21: Anion Gap 19 mmol/L 11/29/18 21:27 BUN 6 mg/dL (7-17) L 11/29/18 21:27 Creatinine 0.9 mg/dL (0.7-1.2) 11/29/18 21:27 Estimated GFR > 60 ml/min 11/29/18 21: BUN/Creatinine Ratio 7 % 11/29/18 21:27 Glucose 96 mg/dL (65-100) 11/29/18 21: Calcium 9.4 mg/dL (8.4-10.2) 11/29/18 21:27 Troponin T < 0.010 ng/mL (0.00-0.029) 11/29/18 21:27 NT-Pro-B Natriuret Pep 5874 pg/mL (0-900) H 11/29/18 21:27 Urine Color Straw (Yellow) 11/29/18 22:23 Urine Turbidity Clear (Clear) 11/29/18 22:23 Urine pH 7.0 (5.0-7.0) 11/29/18 22:23 Ur Specific [place] 1.004 (1.003-1.030) 11/29/18 22:23 Urine Protein 30 mg/dl mg/dL (Negative) 11/29/18 22:23 Urine Glucose (UA) Neg mg/dL (Negative) 11/29/18 22: Urine Ketones Neg mg/dL (Negative) 11/29/18 22:23 Urine Blood Neg (Negative) 11/29/18 22:23 Urine Nitrite Neg (Negative) 11/29/18 22:23 Urine Bilirubin Neg (Negative) 11/29/18 22:23 Urine Urobilinogen < 2.0 mg/dL (<2.0) 11/29/18 22: Ur Leukocyte Esterase Neg (Negative) 11/29/18 22:23 Urine WBC (Auto) < 1.0 /HPF (0.0-6.0) 11/29/18 22: Urine RBC (Auto) 6.0 /HPF (0.0-6.0) 11/29/18: U Epithel Cells (Auto) 1.0 /HPF (0-13.0) 11/29/18 22:23 Assessment and Plan Assessment and plan: Acute on chronic Tracheobronchitis - with swollen and boggy Turbinates - with post nasal drippage - Afrin BID, mucinex started - sputum culture. No procalcitonin available here. Check ESR - no signs of Sepsis. Watch off abx for now. WBC is normal. Large Loculated RT Pleural Effusion - unclear of origin but URI/tracheobronchitis - Pulmonary consult - lasix 20mg IV BID. for now. Imminent Thoracentesi - held Warfarin but will not order FFP for INR reversal till plan is further HTN - Essential - WNL hx of Severe CHF - BIventricular - EF 25% - She seems compensated. - continue to monitor closely on Telemetry Afib - pt is on Coumadin - INR at2.2 - imminent reversal, should intervention be needed
[2018-11-30 03:39] LABS: Basophils # (Auto) 0.1 K/mm3 (0.0-0.1); Basophils % (Auto) 1.5 % (0.0-1.8); Eosinophils # (Auto) 0.2 K/mm3 (0.0-0.4); Eosinophils % (Auto) 4.4 % (0.0-4.3); Hematocrit 38.8 % (30.3-42.9); Hemoglobin 12.7 gm/dl (10.1-14.3); Lymphocytes % (Auto) 22.5 % (13.4-35.0); Mean Corpuscular HGB Conc 33 % (30-34); Mean Corpuscular Volume 91 fl (79-97); Monocytes # (Auto) 0.5 K/mm3 (0.0-0.8); Monocytes % (Auto) 10.7 % (0.0-7.3); Platelet Count 120 K/mm3 (140-440); Red Blood Count 4.27 M/mm3 (3.65-5.03); Red Cell Distribution Width 16.7 % (13.2-15.2)
[2018-11-30 03:47] LABS: INR 2.23 (0.87-1.13)
[2018-11-30 03:57] LABS: BUN/Creatinine Ratio 8; Blood Urea Nitrogen 7 mg/dL (7-17); Calcium 8.8 mg/dL (8.4-10.2); Hemolysis Index 22
[2018-11-30 04:30] LABS: Erythrocyte Sedimentation Rate 6 mm/Hr (0-20)
[2018-11-30] MEDS: VICKS SINEX NS SCH ×2 (05:19→11:09)
[2018-11-30] MEDS ORDERED: VICKS SINEX ONE (05:37)
[2018-11-30] MEDS ORDERED: NON-FORMULARY (Hydralazine Hcl [Hydralazine Hcl] 50 MG) PO SCH (08:00)
[2018-11-30] MEDS ORDERED: K-DUR PO NR (09:15)
[2018-11-30] MEDS ORDERED: PREMARIN VG SCH (10:00)
[2018-11-30] MEDS: PROTONIX PO SCH (10:29)
[2018-11-30] MEDS: LASIX IV SCH ×2 (10:29→21:37)
[2018-11-30] MEDS: FEOSOL PO SCH (10:29)
[2018-11-30] MEDS: NORVASC PO SCH (10:29)
[2018-11-30] MEDS: MUCINEX ER PO SCH ×2 (10:29→21:37)
[2018-11-30] MEDS: SODIUM CHLORIDE FLUSH SYRINGE 10 ML IV SCH ×2 (10:30→21:37)
[2018-11-30] MEDS: SENOKOT PO SCH (10:34)
[2018-11-30] MEDS: APRESOLINE PO SCH ×3 (10:36→21:36)
[2018-11-30] MEDS: TOPROL XL PO SCH (10:44)
[2018-11-30] MEDS: DUONEB *Not for PRN Use IH SCH ×3 (11:11→19:40)
--- NOTE | 2018-11-30 13:31 | Consultation ---
History of Present Illness Consult date: 11/30/18 Requesting physician: JACKIE CHILDRESS Reason for consult: pleural effusion History of present illness: 78 y/o female with pleural effusion Past History Past Medical History: atrial fib, CAD, hypertension. denies: hyperthyroidism Social history: lives with family. denies: smoking Family history: hypertension Medications and Allergies Allergies Allergy/AdvReac Type Severity Reaction Status Date / Time albuterol Allergy Unknown Verified 11/29/18 15:33 heparin Allergy Unknown Verified 11/29/18 15:33 Home Medications Medication Instructions Recorded Confirmed Last Taken Type Amlodipine Besylate [Norvasc] 10 mg PO QDAY 03/29/18 11/30/18 11/28/18 History AtorvaSTATin [Lipitor] 20 mg PO QHS 03/29/18 11/30/18 11/29/18 History Ferrous Sulfate [Iron 325 MG] 27 mg PO DAILY 03/29/18 11/30/18 11/29/18 History Furosemide [Lasix TAB] 40 mg PO QDAY 03/29/18 11/30/18 11/29/18 History Hydralazine HCl 50 mg PO TID 03/29/18 11/30/18 11/29/18 History Metoprolol Succinate [Toprol Xl] 100 mg PO QDAY 03/29/18 11/30/18 11/29/18 History Pantoprazole [Protonix TAB] 40 mg PO QDAY 03/29/18 11/30/18 03/29/18 History Warfarin Sodium [Coumadin] 5 mg PO QDAY 03/29/18 11/30/18 11/28/18 History Ipratropium/Albuterol Sulfate 1 ampul IH Q6HRT #90 ampul.neb 12/04/18 Unknown Rx [DUONEB *Not for PRN Use*] guaiFENesin ER [Mucinex ER] 600 mg PO BID 7 Days tablet 12/04/18 Unknown Rx Active Meds: Active Medications Acetaminophen (Tylenol) 650 mg PO Q4H PRN PRN Reason: Pain MILD(1-3)/Fever >100.5/POLK Albuterol/Ipratropium (Duoneb *Not For Prn Use*) 1 ampul IH Q6HRT [facility] Last Admin: 11/30/18 11:11 Dose: 1 ampul Documented by: Amlodipine Besylate (Norvasc) 10 mg PO QDAY [facility] Last Admin: 11/30/18 10:29 Dose: 10 mg Documented by: Atorvastatin Calcium (Lipitor) 20 mg PO QHS [facility] Bisacodyl (Dulcolax) 10 mg ID QDAY PRN PRN Reason: Constipation unrelieved by MOM Estrogens Conjugated (Premarin) 1 applic VG BID [facility] Last Admin: 11/30/18 11:12 Dose: Not Given Documented by: Ferrous Sulfate (Feosol) 325 mg PO DAILY [facility] Last Admin: 11/30/18 10:29 Dose: 325 mg Documented by: Furosemide (Lasix) 20 mg IV BID [facility] Last Admin: 11/30/18 10:29 Dose: 20 mg Documented by: Guaifenesin (Mucinex Er) 600 mg PO BID [facility] Last Admin: 11/30/18 10:29 Dose: 600 mg Documented by: Hydralazine HCl (Apresoline) 50 mg PO TID [facility] Last Admin: 11/30/18 10:36 Dose: Not Given Documented by: Metoprolol Succinate (Toprol Xl) 100 mg PO QDAY [facility] Last Admin: 11/30/18 10:44 Dose: Not Given Documented by: Ondansetron HCl (Zofran) 4 mg IV Q8H PRN PRN Reason: Nausea And Vomiting Oxymetazoline HCl (Afrin) 2 spray NS BID [facility] Stop: 12/03/18 02:59 Last Admin: 11/30/18 11:09 Dose: 2 spray Documented by: Pantoprazole Sodium (Protonix) 40 mg PO QDAY [facility] Last Admin: 11/30/18 10:29 Dose: 40 mg Documented by: Senna (Senokot) 8.6 mg PO Q24HR [facility] Last Admin: 11/30/18 10:34 Dose: 8.6 mg Documented by: Sodium Chloride (Sodium Chloride Flush Syringe 10 Ml) 10 ml IV BID [facility] Last Admin: 11/30/18 10:30 Dose: 10 ml Documented by: Sodium Chloride (Sodium Chloride Flush Syringe 10 Ml) 10 ml IV PRN PRN PRN Reason: LINE FLUSH Physical Examination Vital signs: Vital Signs Temp Pulse Resp BP Pulse Ox 97.4 F L 77 22 140/89 98 11/29/18 16:03 11/29/18 16:03 11/29/18 16:03 11/29/18 16:03 11/29/18 16:03 Results - Laboratory Findings CBC and BMP: 12/04/18 05:52 12/04/18 05:52 PT/INR, D-dimer PT 26.2 Sec. (12.2-14.9) H 11/30/18 03:28 INR 2.23 (0.87-1.13) H 11/30/18 03:28 Abnormal lab findings: Abnormal Labs 11/29/18 11/29/18 11/29/18 21:27 21:27 21:27 WBC RDW 17.2 H Plt Count [place] % (Auto) 10.2 H Eos % (Auto) Lymph # PT 25.9 H INR 2.20 H APTT 39.0 H Potassium 5.9 H BUN 6 L Glucose NT-Pro-B Natriuret Pep 5874 H 11/30/18 11/30/18 11/30/18 03:28 03:28 03:28 WBC 4.3 L RDW 16.7 H Plt Count 120 L [place] % (Auto) 10.7 H Eos % (Auto) 4.4 H Lymph # 1.0 L PT 26.2 H INR 2.23 H APTT Potassium 3.5 L BUN Glucose 103 H NT-Pro-B Natriuret Pep Assessment and Plan 78 y/o on coumadin for Afib presents with right sided effusion and dyspnea 1. Thora ordered for Monday 2. CT scan ordered for today 3. Will follow up over the weekend. May tap over the weekend to expedite diagnosis
--- NOTE | 2018-11-30 16:23 | Cat Scan Report ---
PROCEDURE: CT CHEST WO CON TECHNIQUE: Axial helical imaging through the chest with sagittal and coronal reformatted images obta ined. HISTORY: R pleural effusion COMPARISONS: Chest x-ray dated November 29, 2018 FINDINGS: There is a partially loculated large right pleural fluid collection with associated compressive atele ctasis in the adjacent lung. There is no evidence of infiltrate in the aerated portions of the lung. The trachea and bronchi are patent. The heart is markedly enlarged. The thoracic aorta is normal caliber. The visualized portion of the upper abdomen is notable for enlargement of the intrahepatic portion of the IVC and partial visualization of a left renal cyst. The bony structures are notable for median sternotomy wires in place. IMPRESSION: 1. Partially loculated right pleural fluid collection with associated compressive atelectasis in the adjacent lung. 2. Marked cardiomegaly. This document is electronically signed by Haritha Morales MD., November 30 2018 04:21:14 PM ET
[2018-12-01] MEDS: DUONEB *Not for PRN Use IH SCH ×4 (02:25→19:59)
--- NOTE | 2018-12-01 08:18 | Progress Note ---
Assessment and Plan Assessment and plan: --Large loculated right pleural effusion; Possible thoracentesis scheduled for Monday Pulmonary following, Continue supportive care --Acute tracheobronchitis; continue supportive care --History of A. fib.; Rate controlled Continue beta blockers --Chronic anticoagulation on Coumadin Therapeutic INR, Coumadin held pending thoracentesis procedure --Dyslipidemia; continue statin --DVT prophylaxis; patient is on Coumadin/SCDs Monitor closely adjust the management as needed Plan of care reviewed. The patient and the family members at the bedside History Interval history: Patient seen and examined this morning medical records reviewed Patient feels slightly better no new complaints Alert awake oriented. Vital signs reviewed Patient has loculated pleural effusion Schedule for paracentesis on 12/03/2018 Vital signs reviewed Hospitalist Physical - Constitutional Vitals: Temp Pulse Resp BP Pulse Ox 97.4 F L 80 18 140/82 99 12/01/18 07:35 12/01/18 07:35 12/01/18 07:35 12/01/18 07:35 12/01/18 07:35 General appearance: Present: no acute distress, well-nourished - EENT Eyes: Present: PERRL, EOM intact - Neck Neck: Present: supple, normal ROM - Respiratory Respiratory effort: normal Respiratory: bilateral: diminished (right more than left), rales, negative: rhonchi, wheezing - Cardiovascular Rhythm: regular Heart Sounds: Present: S1 & S2 - Extremities Extremities: no ischemia, No edema - Abdominal General gastrointestinal: soft, non-tender, non-distended, normal bowel sounds - Integumentary Integumentary: Present: clear, warm - Psychiatric Psychiatric: appropriate mood/affect, cooperative - Neurologic Neurologic: CNII-XII intact, moves all extremities Results - Labs CBC & Chem 7: 11/30/18 03:28 11/30/18 03:28 Labs: Laboratory Last Values WBC 4.3 K/mm3 (4.5-11.0) L 11/30/18 03:28 RBC 4.27 M/mm3 (3.65-5.03) 11/30/18 03:28 Hgb 12.7 gm/dl (10.1-14.3) 11/30/18 03:28 Hct 38.8 % (30.3-42.9) 11/30/18 03:28 MCV 91 fl (79-97) 11/30/18 03:28 MCH 30 pg (28-32) 11/30/18 03:28 MCHC 33 % (30-34) 11/30/18 03:28 RDW 16.7 % (13.2-15.2) H 11/30/18 03:28 Plt Count 120 K/mm3 (140-440) L 11/30/18 03:28 Lymph % (Auto) 22.5 % (13.4-35.0) 11/30/18 03:28 [place] % (Auto) 10.7 % (0.0-7.3) H 11/30/18 03:28 Eos % (Auto) 4.4 % (0.0-4.3) H 11/30/18 03:28 Baso % (Auto) 1.5 % (0.0-1.8) 11/30/18 03:28 Lymph # 1.0 K/mm3 (1.2-5.4) L 11/30/18 03:28 [place] # 0.5 K/mm3 (0.0-0.8) 11/30/18 03:28 Eos # 0.2 K/mm3 (0.0-0.4) 11/30/18 03:28 Baso # 0.1 K/mm3 (0.0-0.1) 11/30/18 03:28 Seg Neutrophils % 60.9 % (40.0-70.0) 11/30/18 03:28 Seg Neutrophils # 2.6 K/mm3 (1.8-7.7) 11/30/18 03:28 ESR 6 mm/Hr (0-20) 11/30/18 03:28 PT 26.2 Sec. (12.2-14.9) H 11/30/18 03:28 INR 2.23 (0.87-1.13) H 11/30/18 03:28 APTT 39.0 Sec. (24.2-36.6) H 11/29/18 21:27 Sodium 140 mmol/L (137-145) 11/30/18 03:28 Potassium 3.5 mmol/L (3.6-5.0) L 11/30/18 03:28 Chloride 103.0 mmol/L (98-107) 11/30/18 03:28 Carbon Dioxide 24 mmol/L (22-30) 11/30/18 03:28 Anion Gap 17 mmol/L 11/30/18 03:28 BUN 7 mg/dL (7-17) 11/30/18 03:28 Creatinine 0.9 mg/dL (0.7-1.2) 11/30/18 03:28 Estimated GFR > 60 ml/min 11/30/18 03:28 BUN/Creatinine Ratio 8 % 11/30/18 03:28 Glucose 103 mg/dL (65-100) H 11/30/18 03:28 Calcium 8.8 mg/dL (8.4-10.2) 11/30/18 03:28 Troponin T < 0.010 ng/mL (0.00-0.029) 11/29/18 21:27 NT-Pro-B Natriuret Pep 5874 pg/mL (0-900) H 11/29/18 21:27 Urine Color Straw (Yellow) 11/29/18 22:23 Urine Turbidity Clear (Clear) 11/29/18 22:23 Urine pH 7.0 (5.0-7.0) 11/29/18 22:23 Ur Specific [place] 1.004 (1.003-1.030) 11/29/18 22:23 Urine Protein 30 mg/dl mg/dL (Negative) 11/29/18 22:23 Urine Glucose (UA) Neg mg/dL (Negative) 11/29/18 22:23 Urine Ketones Neg mg/dL (Negative) 11/29/18 22:23 Urine Blood Neg (Negative) 11/29/18 22:23 Urine Nitrite Neg (Negative) 11/29/18 22:23 Urine Bilirubin Neg (Negative) 11/29/18 22:23 Urine Urobilinogen < 2.0 mg/dL (<2.0) 11/29/18 22:23 Ur Leukocyte Esterase Neg (Negative) 11/29/18 22:23 Urine WBC (Auto) < 1.0 /HPF (0.0-6.0) 11/29/18 22:23 Urine RBC (Auto) 6.0 /HPF (0.0-6.0) 11/29/18 22:23 U Epithel Cells (Auto) 1.0 /HPF (0-13.0) 11/29/18 22:23 Active Medications - Current Medications Current Medications: Generic Name Dose Route Start Last Admin Trade Name Freq PRN Reason Stop Dose Admin Acetaminophen 650 mg 11/30/18 02:14 Tylenol PO Q4H PRN Pain MILD(1-3)/Fever >100.5/POLK Albuterol/Ipratropium 1 ampul 11/30/18 08:00 12/01/18 02:25 Duoneb *Not For Prn Use* IH 1 ampul Q6HRT [facility] Administration Amlodipine Besylate 10 mg 11/30/18 10:00 11/30/18 10:29 Norvasc PO 10 mg QDAY [facility] Administration Atorvastatin Calcium 20 mg 11/30/18 22:00 11/30/18 21:36 Lipitor PO 20 mg QHS [facility] Administration Bisacodyl 10 mg 11/30/18 02:19 Dulcolax OR QDAY PRN Constipation unrelieved by MOM Ferrous Sulfate 325 mg 11/30/18 10:00 11/30/18 10:29 Feosol PO 325 mg DAILY [facility] Administration Furosemide 20 mg 11/30/18 10:00 11/30/18 21:37 Lasix IV 20 mg BID [facility] Administration Guaifenesin 600 mg 11/30/18 10:00 11/30/18 21:37 Mucinex Er PO 600 mg BID [facility] Administration Hydralazine HCl 50 mg 11/30/18 08:00 11/30/18 21:36 Apresoline PO 50 mg TID [facility] Administration Metoprolol Succinate 100 mg 11/30/18 10:00 11/30/18 10:44 Toprol Xl PO Not Given QDAY [facility] Ondansetron HCl 4 mg 11/30/18 02:14 Zofran IV Q8H PRN Nausea And Vomiting Oxymetazoline HCl 2 spray 11/30/18 03:00 11/30/18 11:09 Afrin NS 12/03/18 02:59 2 spray BID [facility] Administration Pantoprazole Sodium 40 mg 11/30/18 10:00 11/30/18 10:29 Protonix PO 40 mg QDAY [facility] Administration Senna 8.6 mg 11/30/18 10:00 11/30/18 10:34 Senokot PO 8.6 mg Q24HR [facility] Administration Sodium Chloride 10 ml 11/30/18 10:00 11/30/18 21:37 Sodium Chloride Flush Syringe 10 Ml IV 10 ml BID [facility] Administration Sodium Chloride 10 ml 11/30/18 02:14 Sodium Chloride Flush Syringe 10 Ml IV PRN PRN LINE FLUSH Nutrition/Malnutrition Assess - Dietary Evaluation Nutrition/Malnutrition Findings: Nutrition Notes Start: 11/30/18 12:20 Freq: Status: Active Protocol: Document 11/30/18 12:20 [email or web address] (Rec: 11/30/18 12:24 [facility] SRW- [email or web address]) Nutrition Notes 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 Pt sleeping soundly at time of visit (11: 34), however, pt RN tech says pt eats 100% of meals so far and is ambulatory. Burn Absent Trauma Absent Is patient on ventilator? No Is Patient Ambulatory and/or Out of Bed Yes REE-([place]-ambulatory/OOB) [ 1594.450 [id number]] Calculation Used for Recommendations [place] Additional Notes Pro needs 1-1.2g/k-84g/ day Fluid needs 1ml/kcal Nutrition Intervention Follow-Up By: 12/05/18 Additional Comments F/U: stable intakes
--- NOTE | 2018-12-01 09:28 | Progress Note ---
Assessment and Plan 78 y/o on coumadin for Afib presents with right sided effusion and dyspnea 1. Thora ordered for Monday 2. CT shows moderate sized effusion, with fluid in the fissure. Should be amenable to complete drainage at bedside 3. ordered coags for today. If less than 1.5 will tap either later today or tomorrow, otherwise await IR on Monday Subjective Date of service: 12/01/18 Interval history: No acute events. No labs drawn today. Remains afebrile Objective Vital Signs - 12hr 11/30/18 11/30/18 12/01/18 21:36 22:00 00:00 Temperature Pulse Rate 71 Pulse Rate [ Anterior Bilateral Throughout] Pulse Rate [ 69 Right Radial] Respiratory 20 Rate Respiratory Rate [Anterior Bilateral Throughout] Blood Pressure 133/71 O2 Sat by Pulse 99 Oximetry 12/01/18 12/01/18 12/01/18 02:00 02:07 02:25 Temperature 98.3 F Pulse Rate 60 Pulse Rate [ 60 Anterior Bilateral Throughout] Pulse Rate [ Right Radial] Respiratory 20 Rate Respiratory 18 Rate [Anterior Bilateral Throughout] Blood Pressure 136/75 O2 Sat by Pulse 99 Oximetry 12/01/18 12/01/18 02:33 07:35 Temperature 97.4 F L Pulse Rate 80 Pulse Rate [ 66 Anterior Bilateral Throughout] Pulse Rate [ Right Radial] Respiratory 18 Rate Respiratory 18 Rate [Anterior Bilateral Throughout] Blood Pressure 140/82 O2 Sat by Pulse 99 Oximetry CBC and BMP: 11/30/18 03:28 11/30/18 03:28 ABG, PT/INR, D-dimer: PT/INR, D-dimer PT 26.2 Sec. (12.2-14.9) H 11/30/18 03:28 INR 2.23 (0.87-1.13) H 11/30/18 03:28 Abnormal lab findings: Abnormal Labs 11/29/18 11/29/18 11/29/18 21:27 21:27 21:27 WBC RDW 17.2 H Plt Count [place] % (Auto) 10.2 H Eos % (Auto) Lymph # PT 25.9 H INR 2.20 H APTT 39.0 H Potassium 5.9 H BUN 6 L Glucose NT-Pro-B Natriuret Pep 5874 H 11/30/18 11/30/18 11/30/18 03:28 03:28 03:28 WBC 4.3 L RDW 16.7 H Plt Count 120 L [place] % (Auto) 10.7 H Eos % (Auto) 4.4 H Lymph # 1.0 L PT 26.2 H INR 2.23 H APTT Potassium 3.5 L BUN Glucose 103 H NT-Pro-B Natriuret Pep
[2018-12-01] MEDS: LASIX IV SCH ×2 (09:43→21:58)
[2018-12-01] MEDS: FEOSOL PO SCH (09:43)
[2018-12-01] MEDS: APRESOLINE PO SCH ×3 (09:44→21:59)
[2018-12-01] MEDS: NORVASC PO SCH (09:46)
[2018-12-01] MEDS: TOPROL XL PO SCH (09:46)
[2018-12-01] MEDS: MUCINEX ER PO SCH ×2 (09:47→21:58)
[2018-12-01] MEDS: PROTONIX PO SCH (09:47)
[2018-12-01] MEDS: SENOKOT PO SCH (09:47)
[2018-12-01] MEDS: SODIUM CHLORIDE FLUSH SYRINGE 10 ML IV SCH ×2 (09:48→21:58)
[2018-12-01 10:00] LABS: INR 1.76 (0.87-1.13)
[2018-12-01 10:01] LABS: Partial Thromboplastin Time 34.9 Sec. (24.2-36.6)
[2018-12-01] MEDS: VICKS SINEX NS SCH ×2 (12:45→22:05)
[2018-12-02] MEDS: DUONEB *Not for PRN Use IH SCH ×4 (02:29→21:12)
[2018-12-02] MEDS: APRESOLINE PO SCH ×3 (08:44→20:50)
--- NOTE | 2018-12-02 08:44 | XRay Report ---
EXAM: XR CHEST ROUTINE 2V HISTORY: Pleural effusion TECHNIQUE: PA and lateral chest x-ray dated 12/02/2018 at 8:18 AM. COMPARISON: CXR dated 11/29/2018. FINDINGS: The patient is status post median sternotomy, presumably for cardiac surgery. A left inferior lateral chest wall subcutaneous pacer device is noted with a single left cardiac pacer wire in situ. There i s moderate to severe cardiomegaly (occult pericardial effusion not excluded). There is severe aortic atherosclerosis. There is mildly improved appearance of a small to moderate right pleural effusion (including a small amount of loculated fluid within the minor fissure), with left basilar consolidative atelectasis and/ or pneumonic infiltrate in the appropriate clinical setting (significantly improved appearance). Gideon mmend clinical correlation and appropriate followup evaluation (consider CT) as clinically warranted. There is lung parenchymal hyperinflation and hyperlucency in keeping with COPD/emphysema. There is no pneumothorax seen. The visualized bony structures are within normal limits. IMPRESSION: 1. Mildly improved appearance of a small to moderate right pleural effusion (including a small amoun t of loculated fluid within the minor fissure), with left basilar consolidative atelectasis and/or pn eumonic infiltrate in the appropriate clinical setting (significantly improved appearance). Recommend clinical correlation and appropriate followup evaluation (consider CT) as clinically warranted. 2. Moderate to severe cardiomegaly (occult pericardial effusion not excluded). 3. COPD. This document is electronically signed by Avtar Mayfield MD., December 02 2018 08:42:07 AM ET
--- NOTE | 2018-12-02 10:20 | Progress Note ---
Assessment and Plan 78 y/o on coumadin for Afib presents with right sided effusion and dyspnea 1. Will discuss with patient but I would suggest increasing the diuretic therapy and holding on thoracentesis as patient does not really want it and she is not symptomatic from it at present 2. If still felt needed, can have IR do tomorrow. Subjective Date of service: 12/02/18 Interval history: Pleural effusion has improved. Tolerating lasix therapy. REmains on room air and stable Objective Vital Signs - 12hr 12/02/18 12/02/18 12/02/18 00:00 01:52 08:43 Temperature 98.3 F 97.5 F L Pulse Rate 67 68 Pulse Rate [ 70 Right Radial] Respiratory 18 18 Rate Blood Pressure 128/77 166/103 O2 Sat by Pulse 98 98 98 Oximetry 12/02/18 12/02/18 08:44 09:38 Temperature Pulse Rate Pulse Rate [ 78 Right Radial] Respiratory 18 Rate Blood Pressure 166/103 O2 Sat by Pulse 98 Oximetry CBC and BMP: 11/30/18 03:28 11/30/18 03:28 ABG, PT/INR, D-dimer: PT/INR, D-dimer PT 21.7 Sec. (12.2-14.9) H 12/01/18 09:38 INR 1.76 (0.87-1.13) H 12/01/18 09:38 Abnormal lab findings: Abnormal Labs 11/29/18 11/29/18 11/29/18 21:27 21:27 21:27 WBC RDW 17.2 H Plt Count [place] % (Auto) 10.2 H Eos % (Auto) Lymph # PT 25.9 H INR 2.20 H APTT 39.0 H Potassium 5.9 H BUN 6 L Glucose NT-Pro-B Natriuret Pep 5874 H 11/30/18 11/30/18 11/30/18 03:28 03:28 03:28 WBC 4.3 L RDW 16.7 H Plt Count 120 L [place] % (Auto) 10.7 H Eos % (Auto) 4.4 H Lymph # 1.0 L PT 26.2 H INR 2.23 H APTT Potassium 3.5 L BUN Glucose 103 H NT-Pro-B Natriuret Pep 12/01/18 09:38 WBC RDW Plt Count [place] % (Auto) Eos % (Auto) Lymph # PT 21.7 H INR 1.76 H APTT Potassium BUN Glucose NT-Pro-B Natriuret Pep
--- NOTE | 2018-12-02 10:49 | Progress Note ---
Assessment and Plan Assessment and plan: --Large loculated right pleural effusion; and CT chest present on admission Possible thoracentesis scheduled for Monday Pulmonary following, Continue supportive care Follow up chest x-ray today revealed mild improvement of the pleural effusion --Mild pericardial effusion; check echocardiogram to further evaluate pericardial effusion Consider pericardiocentesis if needed and cardiology consult --Acute tracheobronchitis; continue supportive care --History of A. fib.; Rate controlled Continue beta blockers --Chronic anticoagulation on Coumadin Therapeutic INR, Coumadin held pending thoracentesis procedure --Dyslipidemia; continue statin --DVT prophylaxis; patient is on Coumadin/SCDs Monitor closely adjust the management as needed Plan of care reviewed. The patient and the family members at the bedside History Interval history: Exam and Medical Records Reviewed No new events reported by the nursing staff Follow-up chest x-ray mild improvement in loculated pleural effusion Mild pericardial effusion, check echocardiogram for function and more details of pericardial effusion Cardiology evaluation if needed Hospitalist Physical - Constitutional Vitals: Temp Pulse Resp BP Pulse Ox 97.5 F L 78 18 166/103 98 12/02/18 08:43 12/02/18 09:38 12/02/18 09:38 12/02/18 08:44 12/02/18 09:38 General appearance: Present: no acute distress, well-nourished - EENT Eyes: Present: PERRL, EOM intact - Neck Neck: Present: supple, normal ROM - Respiratory Respiratory effort: normal Respiratory: bilateral: diminished (right more than left), rales, negative: rhonchi, wheezing - Cardiovascular Rhythm: regular Heart Sounds: Present: S1 & S2 - Extremities Extremities: no ischemia, No edema - Abdominal General gastrointestinal: soft, non-tender, non-distended, normal bowel sounds - Integumentary Integumentary: Present: clear, warm - Psychiatric Psychiatric: appropriate mood/affect, cooperative - Neurologic Neurologic: moves all extremities Results - Labs CBC & Chem 7: 11/30/18 03:28 11/30/18 03:28 Labs: Laboratory Last Values WBC 4.3 K/mm3 (4.5-11.0) L 11/30/18 03:28 RBC 4.27 M/mm3 (3.65-5.03) 11/30/18 03:28 Hgb 12.7 gm/dl (10.1-14.3) 11/30/18 03:28 Hct 38.8 % (30.3-42.9) 11/30/18 03:28 MCV 91 fl (79-97) 11/30/18 03:28 MCH 30 pg (28-32) 11/30/18 03:28 MCHC 33 % (30-34) 11/30/18 03:28 RDW 16.7 % (13.2-15.2) H 11/30/18 03:28 Plt Count 120 K/mm3 (140-440) L 11/30/18 03:28 Lymph % (Auto) 22.5 % (13.4-35.0) 11/30/18 03:28 [place] % (Auto) 10.7 % (0.0-7.3) H 11/30/18 03:28 Eos % (Auto) 4.4 % (0.0-4.3) H 11/30/18 03:28 Baso % (Auto) 1.5 % (0.0-1.8) 11/30/18 03:28 Lymph # 1.0 K/mm3 (1.2-5.4) L 11/30/18 03:28 [place] # 0.5 K/mm3 (0.0-0.8) 11/30/18 03:28 Eos # 0.2 K/mm3 (0.0-0.4) 11/30/18 03:28 Baso # 0.1 K/mm3 (0.0-0.1) 11/30/18 03:28 Seg Neutrophils % 60.9 % (40.0-70.0) 11/30/18 03:28 Seg Neutrophils # 2.6 K/mm3 (1.8-7.7) 11/30/18 03:28 ESR 6 mm/Hr (0-20) 11/30/18 03:28 PT 21.7 Sec. (12.2-14.9) H 12/01/18 09:38 INR 1.76 (0.87-1.13) H 12/01/18 09:38 APTT 34.9 Sec. (24.2-36.6) 12/01/18 09:38 Sodium 140 mmol/L (137-145) 11/30/18 03:28 Potassium 3.5 mmol/L (3.6-5.0) L 11/30/18 03:28 Chloride 103.0 mmol/L (98-107) 11/30/18 03:28 Carbon Dioxide 24 mmol/L (22-30) 11/30/18 03:28 Anion Gap 17 mmol/L 11/30/18 03:28 BUN 7 mg/dL (7-17) 11/30/18 03:28 Creatinine 0.9 mg/dL (0.7-1.2) 11/30/18 03:28 Estimated GFR > 60 ml/min 11/30/18 03:28 BUN/Creatinine Ratio 8 % 11/30/18 03:28 Glucose 103 mg/dL (65-100) H 11/30/18 03:28 Calcium 8.8 mg/dL (8.4-10.2) 11/30/18 03:28 Troponin T < 0.010 ng/mL (0.00-0.029) 11/29/18 21:27 NT-Pro-B Natriuret Pep 5874 pg/mL (0-900) H 11/29/18 21:27 Urine Color Straw (Yellow) 11/29/18 22:23 Urine Turbidity Clear (Clear) 11/29/18 22:23 Urine pH 7.0 (5.0-7.0) 11/29/18 22:23 Ur Specific [place] 1.004 (1.003-1.030) 11/29/18 22:23 Urine Protein 30 mg/dl mg/dL (Negative) 11/29/18 22:23 Urine Glucose (UA) Neg mg/dL (Negative) 11/29/18 22:23 Urine Ketones Neg mg/dL (Negative) 11/29/18 22:23 Urine Blood Neg (Negative) 11/29/18 22:23 Urine Nitrite Neg (Negative) 11/29/18 22:23 Urine Bilirubin Neg (Negative) 11/29/18 22:23 Urine Urobilinogen < 2.0 mg/dL (<2.0) 11/29/18 22:23 Ur Leukocyte Esterase Neg (Negative) 11/29/18 22:23 Urine WBC (Auto) < 1.0 /HPF (0.0-6.0) 11/29/18 22:23 Urine RBC (Auto) 6.0 /HPF (0.0-6.0) 11/29/18 22:23 U Epithel Cells (Auto) 1.0 /HPF (0-13.0) 11/29/18 22:23 Active Medications - Current Medications Current Medications: Generic Name Dose Route Start Last Admin Trade Name Freq PRN Reason Stop Dose Admin Acetaminophen 650 mg 11/30/18 02:14 Tylenol PO Q4H PRN Pain MILD(1-3)/Fever >100.5/POLK Albuterol/Ipratropium 1 ampul 11/30/18 08:00 12/02/18 08:40 Duoneb *Not For Prn Use* IH 1 ampul Q6HRT SERGE Administration Amlodipine Besylate 10 mg 11/30/18 10:00 12/01/18 09:46 Norvasc PO 10 mg QDAY SERGE Administration Atorvastatin Calcium 20 mg 11/30/18 22:00 12/01/18 21:58 Lipitor PO 20 mg QHS SERGE Administration Bisacodyl 10 mg 11/30/18 02:19 Dulcolax [place] QDAY PRN Constipation unrelieved by MOM Ferrous Sulfate 325 mg 11/30/18 10:00 12/01/18 09:43 Feosol PO 325 mg DAILY SERGE Administration Furosemide 40 mg 12/02/18 10:45 Lasix IV BID SERGE Guaifenesin 600 mg 11/30/18 10:00 12/01/18 21:58 Mucinex Er PO 600 mg BID SERGE Administration Hydralazine HCl 50 mg 11/30/18 08:00 12/02/18 08:44 Apresoline PO 50 mg TID SERGE Administration Metoprolol Succinate 100 mg 11/30/18 10:00 12/01/18 09:46 Toprol Xl PO 100 mg QDAY SERGE Administration Ondansetron HCl 4 mg 11/30/18 02:14 Zofran IV Q8H PRN Nausea And Vomiting Oxymetazoline HCl 2 spray 11/30/18 03:00 12/01/18 12:45 Afrin NS 12/03/18 02:59 2 spray BID SERGE Administration Pantoprazole Sodium 40 mg 11/30/18 10:00 12/01/18 09:47 Protonix PO 40 mg QDAY SERGE Administration Senna 8.6 mg 11/30/18 10:00 12/01/18 09:47 Senokot PO 8.6 mg Q24HR SERGE Administration Sodium Chloride 10 ml 11/30/18 10:00 12/01/18 21:58 Sodium Chloride Flush Syringe 10 Ml IV 10 ml BID SERGE Administration Sodium Chloride 10 ml 11/30/18 02:14 Sodium Chloride Flush Syringe 10 Ml IV PRN PRN LINE FLUSH Nutrition/Malnutrition Assess - Dietary Evaluation Nutrition/Malnutrition Findings: Nutrition Notes Start: 11/30/18 12:20 Freq: Status: Active Protocol: Document 11/30/18 12:20 GISELLE (Rec: 11/30/18 12:24 [email or web address]) Nutrition Notes 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 Pt sleeping soundly at time of visit (11: 34), however, pt RN tech says pt eats 100% of meals so far and is ambulatory. Burn Absent Trauma Absent Is patient on ventilator? No Is Patient Ambulatory and/or Out of Bed Yes REE-([facility]-ambulatory/OOB) [ 1594.450 NUTR.MSJOOB] Calculation Used for Recommendations [facility] Additional Notes Pro needs 1-1.2g/k-84g/ day Fluid needs 1ml/kcal Nutrition Intervention Follow-Up By: 12/05/18 Additional Comments F/U: stable intakes
[2018-12-02] MEDS: VICKS SINEX NS SCH ×3 (10:51→22:06)
[2018-12-02] MEDS: FEOSOL PO SCH (10:52)
[2018-12-02] MEDS: MUCINEX ER PO SCH ×2 (10:52→21:05)
[2018-12-02] MEDS: PROTONIX PO SCH (10:52)
[2018-12-02] MEDS: SENOKOT PO SCH (10:52)
[2018-12-02] MEDS: SODIUM CHLORIDE FLUSH SYRINGE 10 ML IV SCH ×2 (10:53→21:06)
[2018-12-02] MEDS: TOPROL XL PO SCH (10:53)
[2018-12-02] MEDS: NORVASC PO SCH (10:54)
[2018-12-02] MEDS: LASIX IV SCH ×3 (11:00→17:11)
[2018-12-02] MEDS: TYLENOL PO PRN (22:12)
[2018-12-03] MEDS: DUONEB *Not for PRN Use IH SCH ×4 (02:19→21:13)
[2018-12-03] MEDS: LASIX IV SCH ×2 (05:30→17:20)
[2018-12-03] MEDS: APRESOLINE PO SCH ×3 (08:50→20:41)
[2018-12-03] MEDS: PROTONIX PO SCH (09:17)
[2018-12-03] MEDS: MUCINEX ER PO SCH ×2 (09:17→21:06)
[2018-12-03] MEDS: FEOSOL PO SCH (09:17)
[2018-12-03] MEDS: SODIUM CHLORIDE FLUSH SYRINGE 10 ML IV SCH ×2 (09:18→21:07)
[2018-12-03] MEDS: SENOKOT PO SCH (09:19)
[2018-12-03 09:25] LABS: INR 1.13 (0.87-1.13)
--- NOTE | 2018-12-03 09:33 | Progress Note ---
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 she started to cough yesterday- she is unable to bring up any phlegm but she says she feels it dripping behind throat. She reports having Chronic Allergic initial workup was consistent with large loculated right pleural effusion , acute on chronic combined systolic and diastolic congestive heart failure, cardiology consult placed , Patient was evaluated by pulmonary, underwent US guided right thoracentesis 700 mL removed ,Follow fluid analysis --Large loculated right pleural effusion; and CT chest present on admission s/pt ultrasound-guided right thoracentesis; removal of 700 mL, Fluid analysis pending --Mild pericardial effusion; no pericardial effusion on echocardiogram --Acute tracheobronchitis; continue supportive care --History of A. fib.; Rate controlled, Continue beta blockers --Bioprosthetic MV: stable on ECHO --Acute combined systolic and diastolic congestive heart failure; ejection fraction 25-30%, Continue anti-failure medications, cardiology consult --Chronic anticoagulation on Coumadin Coumadin held for the procedure, resume Coumadin to target INR 2-3 --Dyslipidemia; continue statin --DVT prophylaxis; patient is on Coumadin/SCDs Monitor closely adjust the management as needed Plan of care reviewed. The patient and the family members at the [facility] Follow-up cardiology evaluation and recommendation Possible discharge in 1-2 days if stable History Interval history: Patient seen and examined this morning medical records reviewed The patient feels slightly better continues to have mild shortness of breath Vital signs reviewed Hospitalist Physical - Constitutional Vitals: Temp Pulse Resp BP Pulse Ox 98.0 F 61 20 125/72 99 12/03/18 07:45 12/03/18 08:50 12/03/18 08:22 12/03/18 08:50 12/03/18 08:10 General appearance: Present: no acute distress, well-nourished - EENT Eyes: Present: PERRL, EOM intact - Neck Neck: Present: supple, normal ROM - Respiratory Respiratory effort: normal Respiratory: bilateral: diminished (right more than left ), rales, negative: rhonchi, wheezing - Cardiovascular Rhythm: regular Heart Sounds: Present: S1 & S2 - Extremities Extremities: no ischemia, No edema - Abdominal General gastrointestinal: soft, non-tender, non-distended, normal bowel sounds - Integumentary Integumentary: Present: clear, warm - Psychiatric Psychiatric: appropriate mood/affect, cooperative - Neurologic Neurologic: CNII-XII intact, moves all extremities Results - Labs CBC & Chem 7: 11/30/18 03:28 11/30/18 03:28 Labs: Laboratory Last Values WBC 4.3 K/mm3 (4.5-11.0) L 11/30/18 03:28 RBC 4.27 M/mm3 (3.65-5.03) 11/30/18 03:28 Hgb 12.7 gm/dl (10.1-14.3) 11/30/18 03:28 Hct 38.8 % (30.3-42.9) 11/30/18 03:28 MCV 91 fl (79-97) 11/30/18 03:28 MCH 30 pg (28-32) 11/30/18 03:28 MCHC 33 % (30-34) 11/30/18 03:28 RDW 16.7 % (13.2-15.2) H 11/30/18 03:28 Plt Count 120 K/mm3 (140-440) L 11/30/18 03:28 Lymph % (Auto) 22.5 % (13.4-35.0) 11/30/18 03:28 [place] % (Auto) 10.7 % (0.0-7.3) H 11/30/18 03:28 Eos % (Auto) 4.4 % (0.0-4.3) H 11/30/18 03:28 Baso % (Auto) 1.5 % (0.0-1.8) 11/30/18 03:28 Lymph # 1.0 K/mm3 (1.2-5.4) L 11/30/18 03:28 [place] # 0.5 K/mm3 (0.0-0.8) 11/30/18 03:28 Eos # 0.2 K/mm3 (0.0-0.4) 11/30/18 03:28 Baso # 0.1 K/mm3 (0.0-0.1) 11/30/18 03:28 Seg Neutrophils % 60.9 % (40.0-70.0) 11/30/18 03:28 Seg Neutrophils # 2.6 K/mm3 (1.8-7.7) 11/30/18 03:28 ESR 6 mm/Hr (0-20) 11/30/18 03:28 PT 15.2 Sec. (12.2-14.9) H 12/03/18 08:37 INR 1.13 (0.87-1.13) 12/03/18 08:37 APTT 34.9 Sec. (24.2-36.6) 12/01/18 09:38 Sodium 140 mmol/L (137-145) 11/30/18 03:28 Potassium 3.5 mmol/L (3.6-5.0) L 11/30/18 03:28 Chloride 103.0 mmol/L (98-107) 11/30/18 03:28 Carbon Dioxide 24 mmol/L (22-30) 11/30/18 03:28 Anion Gap 17 mmol/L 11/30/18 03:28 BUN 7 mg/dL (7-17) 11/30/18 03:28 Creatinine 0.9 mg/dL (0.7-1.2) 11/30/18 03:28 Estimated GFR > 60 ml/min 11/30/18 03:28 BUN/Creatinine Ratio 8 % 11/30/18 03:28 Glucose 103 mg/dL (65-100) H 11/30/18 03:28 Calcium 8.8 mg/dL (8.4-10.2) 11/30/18 03:28 Troponin T < 0.010 ng/mL (0.00-0.029) 11/29/18 21:27 NT-Pro-B Natriuret Pep 5874 pg/mL (0-900) H 11/29/18 21:27 Urine Color Straw (Yellow) 11/29/18 22:23 Urine Turbidity Clear (Clear) 11/29/18 22:23 Urine pH 7.0 (5.0-7.0) 11/29/18 22:23 Ur Specific [place] 1.004 (1.003-1.030) 11/29/18 22:23 Urine Protein 30 mg/dl mg/dL (Negative) 11/29/18 22:23 Urine Glucose (UA) Neg mg/dL (Negative) 11/29/18 22:23 Urine Ketones Neg mg/dL (Negative) 11/29/18 22:23 Urine Blood Neg (Negative) 11/29/18 22:23 Urine Nitrite Neg (Negative) 11/29/18 22:23 Urine Bilirubin Neg (Negative) 11/29/18 22:23 Urine Urobilinogen < 2.0 mg/dL (<2.0) 11/29/18 22:23 Ur Leukocyte Esterase Neg (Negative) 11/29/18 22:23 Urine WBC (Auto) < 1.0 /HPF (0.0-6.0) 11/29/18 22:23 Urine RBC (Auto) 6.0 /HPF (0.0-6.0) 11/29/18 22:23 U Epithel Cells (Auto) 1.0 /HPF (0-13.0) 11/29/18 22:23 Active Medications - Current Medications Current Medications: Generic Name Dose Route Start Last Admin Trade Name Freq PRN Reason Stop Dose Admin Acetaminophen 650 mg 11/30/18 02:14 12/02/18 22:12 Tylenol PO 650 mg Q4H PRN Administration Pain MILD(1-3)/Fever >100.5/POLK Albuterol/Ipratropium 1 ampul 11/30/18 08:00 12/03/18 08:09 Duoneb *Not For Prn Use* IH 1 ampul Q6HRT SERGE Administration Amlodipine Besylate 10 mg 11/30/18 10:00 12/02/18 10:54 Norvasc PO 10 mg QDAY SERGE Administration Atorvastatin Calcium 20 mg 11/30/18 22:00 12/02/18 21:06 Lipitor PO 20 mg QHS SERGE Administration Bisacodyl 10 mg 11/30/18 02:19 Dulcolax [place] QDAY PRN Constipation unrelieved by MOM Ferrous Sulfate 325 mg 11/30/18 10:00 12/03/18 09:17 Feosol PO 325 mg DAILY SERGE Administration Furosemide 40 mg 12/02/18 11:00 12/03/18 05:30 Lasix IV 40 mg 0600,1800 SERGE Administration Guaifenesin 600 mg 11/30/18 10:00 12/03/18 09:17 Mucinex Er PO 600 mg BID SERGE Administration Hydralazine HCl 50 mg 11/30/18 08:00 12/03/18 08:50 Apresoline PO 50 mg TID SERGE Administration Metoprolol Succinate 100 mg 11/30/18 10:00 12/02/18 10:53 Toprol Xl PO 100 mg QDAY SERGE Administration Ondansetron HCl 4 mg 11/30/18 02:14 Zofran IV Q8H PRN Nausea And Vomiting Pantoprazole Sodium 40 mg 11/30/18 10:00 12/03/18 09:17 Protonix PO 40 mg QDAY SERGE Administration Senna 8.6 mg 11/30/18 10:00 12/03/18 09:19 Senokot PO Not Given Q24HR SERGE Sodium Chloride 10 ml 11/30/18 10:00 12/03/18 09:18 Sodium Chloride Flush Syringe 10 Ml IV 10 ml BID SERGE Administration Sodium Chloride 10 ml 11/30/18 02:14 Sodium Chloride Flush Syringe 10 Ml IV PRN PRN LINE FLUSH Nutrition/Malnutrition Assess - Dietary Evaluation Nutrition/Malnutrition Findings: Nutrition Notes Start: 11/30/18 12:20 Freq: Status: Active Protocol: Document 11/30/18 12:20 [facility] (Rec: 11/30/18 12:24 [facility] SRW- [email or web address]) Nutrition Notes 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 Pt sleeping soundly at time of visit (11: 34), however, pt RN tech says pt eats 100% of meals so far and is ambulatory. Burn Absent Trauma Absent Is patient on ventilator? No Is Patient Ambulatory and/or [facility] Bed [facility] [ 1594.450 NUTR.MSJOOB] Calculation [facility] Additional Notes Pro needs 1-1.2g/k-84g/ day Fluid needs 1ml/kcal Nutrition Intervention Follow-Up By: 12/05/18 Additional Comments F/U: stable intakes
[2018-12-03] MEDS: TOPROL XL PO SCH (10:50)
[2018-12-03] MEDS: NORVASC PO SCH (10:50)
[2018-12-03] MEDS ORDERED: XYLOCAINE 1% 20 mL ONE (11:22)
--- NOTE | 2018-12-03 12:12 | Ultrasound Report ---
ULTRASOUND THORACENTESIS History: Right Pleural effusion Description of procedure: Informed consent was obtained. Sterile technique was utilized. 1% lidocaine for skin anesthesia. Using ultrasound guidance, a 5 [place] centesis needle was advanced into the right pleural space. There was spontaneous return of blood tinged but relatively clear fluid. 700 cc of fluid was aspirated. 120 cc of fluid was sent to lab for analysis. No complications. A followup chest x-ray was ordered. Impression: Successful ultrasound-guided right thoracentesis
--- NOTE | 2018-12-03 13:51 | Procedure Note ---
Date of procedure: 12/03/18 Pre-op diagnosis: right pleural effusion Post-op diagnosis: same Procedure: US right thoracentesis Findings: moderate right pleural effusion Anesthesia: local Surgeon: GERARDO FRANCES Estimated blood loss: none Pathology: list (120cc) Specimen disposition: to lab Condition: stable Disposition: floor
[2018-12-03 14:23] LABS: Monocytes Body Fluid 8.5 %; Total Cells Counted 200 /mm3
--- NOTE | 2018-12-03 15:26 | XRay Report ---
AP CHEST: HISTORY: Right pleural effusion, recent thoracentesis Recent ultrasound-guided thoracentesis was performed in which 700 cc of fluid was removed. Near-complete evacuation of the right pleural effusion is demonstrated. No pneumothorax. The lungs are adequately aerated. Moderate to severe cardiomegaly is stable. IMPRESSION: Complete or near complete evacuation of the right pleural effusion. No pneumothorax. Cardiomegaly.
[2018-12-03] MEDS ORDERED: MILK OF MAGNESIA PO PRN (17:05)
--- NOTE | 2018-12-03 17:18 | Progress Note ---
Assessment and Plan Imp: 1. Dilated CMP 2. A/C systolic CHF 3. Pulm HTN, probably due to the above 4. Pleural effusion on R, suspect 2/2 to above; DDx includes parapneumonic, malignancy given ? mild loculation 5. Chronic atrial fib Rec: 1. Cont. Lasix 2. F/u PFA; unfortunately LDH and Protein are send-out tests; since she is now asymptomatic I would be okay with her going home and following up the final results in our office in 1 week, along with repeating a CXR to eval. for reaccumulation Plan of care reviewed with patient, she understands/agrees Subjective Date of service: 12/03/18 Principal diagnosis: Pleural effusion Interval history: Thoracentesis done on R, see report. Awake, alert. No SOB, chest pain, cough, sputum, new complaints. On RA. Active Medications Acetaminophen (Tylenol) 650 mg PO Q4H PRN PRN Reason: Pain MILD(1-3)/Fever >100.5/POLK Last Admin: 12/02/18 22:12 Dose: 650 mg Documented by: Albuterol/Ipratropium (Duoneb *Not For Prn Use*) 1 ampul IH Q6HRT [facility] Last Admin: 12/03/18 13:36 Dose: 1 ampul Documented by: Amlodipine Besylate (Norvasc) 10 mg PO QDAY [facility] Last Admin: 12/03/18 10:50 Dose: Not Given Documented by: Atorvastatin Calcium (Lipitor) 20 mg PO QHS [facility] Last Admin: 12/02/18 21:06 Dose: 20 mg Documented by: Bisacodyl (Dulcolax) 10 mg [place] QDAY PRN PRN Reason: Constipation unrelieved by MOM Ferrous Sulfate (Feosol) 325 mg PO DAILY [facility] Last Admin: 12/03/18 09:17 Dose: 325 mg Documented by: Furosemide (Lasix) 40 mg IV 0600,1800 [facility] Last Admin: 12/03/18 05:30 Dose: 40 mg Documented by: Guaifenesin (Mucinex Er) 600 mg PO BID [facility] Last Admin: 12/03/18 09:17 Dose: 600 mg Documented by: Hydralazine HCl (Apresoline) 50 mg PO TID [facility] Last Admin: 12/03/18 08:50 Dose: 50 mg Documented by: Magnesium Hydroxide (Milk Of Magnesia) 30 ml PO QDAY PRN PRN Reason: Constipation Metoprolol Succinate (Toprol Xl) 100 mg PO QDAY [facility] Last Admin: 12/03/18 10:50 Dose: Not Given Documented by: Ondansetron HCl (Zofran) 4 mg IV Q8H PRN PRN Reason: Nausea And Vomiting Pantoprazole Sodium (Protonix) 40 mg PO QDAY [facility] Last Admin: 12/03/18 09:17 Dose: 40 mg Documented by: Senna (Senokot) 8.6 mg PO Q24HR [facility] Last Admin: 12/03/18 09:19 Dose: Not Given Documented by: Sodium Chloride (Sodium Chloride Flush Syringe 10 Ml) 10 ml IV BID [facility] Last Admin: 12/03/18 09:18 Dose: 10 ml Documented by: Sodium Chloride (Sodium Chloride Flush Syringe 10 Ml) 10 ml IV PRN PRN PRN Reason: LINE FLUSH Objective Vital Signs - 12hr 12/03/18 12/03/18 12/03/18 07:45 08:09 08:10 Temperature 98.0 F Pulse Rate 61 Pulse Rate [ 66 Anterior Bilateral Throughout] Pulse Rate [ Right Radial] Respiratory 16 Rate Respiratory 18 Rate [Anterior Bilateral Throughout] Blood Pressure 125/72 O2 Sat by Pulse 100 99 Oximetry 12/03/18 12/03/18 12/03/18 08:22 08:50 09:00 Temperature Pulse Rate 61 Pulse Rate [ 63 Anterior Bilateral Throughout] Pulse Rate [ 82 Right Radial] Respiratory 20 Rate Respiratory 20 Rate [Anterior Bilateral Throughout] Blood Pressure 125/72 O2 Sat by Pulse Oximetry 12/03/18 12/03/18 12/03/18 10:50 13:23 13:36 Temperature 97.5 F L Pulse Rate 75 66 Pulse Rate [ 69 Anterior Bilateral Throughout] Pulse Rate [ Right Radial] Respiratory 18 Rate Respiratory 18 Rate [Anterior Bilateral Throughout] Blood Pressure 120/63 138/77 O2 Sat by Pulse 98 99 Oximetry 12/03/18 13:49 Temperature Pulse Rate Pulse Rate [ 71 Anterior Bilateral Throughout] Pulse Rate [ Right Radial] Respiratory Rate Respiratory 20 Rate [Anterior Bilateral Throughout] Blood Pressure O2 Sat by Pulse Oximetry Constitutional: no acute distress, alert Eyes: non-icteric ENT: oropharynx moist Neck: supple Effort: normal Ascultation: Bilateral: wheezes (few bilaterally) Cardiovascular: irregular rhythm (no r/g; III/ systolic murmur throughout) Gastrointestinal: normoactive bowel sounds, soft, non-tender, non-distended Integumentary: normal Extremities: no cyanosis, no edema, pink and warm Neurologic: normal mental status, non-focal exam Psychiatric: mood appropriate, affect normal CBC and BMP: 11/30/18 03:28 11/30/18 03:28 ABG, PT/INR, D-dimer: PT/INR, D-dimer PT 15.2 Sec. (12.2-14.9) H 12/03/18 08:37 INR 1.13 (0.87-1.13) 12/03/18 08:37 Abnormal lab findings: Abnormal Labs 11/29/18 11/29/18 11/29/18 21:27 21:27 21:27 WBC RDW 17.2 H Plt Count [place] % (Auto) 10.2 H Eos % (Auto) Lymph # PT 25.9 H INR 2.20 H APTT 39.0 H Potassium 5.9 H BUN 6 L Glucose NT-Pro-B Natriuret Pep 5874 H 11/30/18 11/30/18 11/30/18 03:28 03:28 03:28 WBC 4.3 L RDW 16.7 H Plt Count 120 L [place] % (Auto) 10.7 H Eos % (Auto) 4.4 H Lymph # 1.0 L PT 26.2 H INR 2.23 H APTT Potassium 3.5 L BUN Glucose 103 H NT-Pro-B Natriuret Pep 12/01/18 12/03/18 09:38 08:37 WBC RDW Plt Count [place] % (Auto) Eos % (Auto) Lymph # PT 21.7 H 15.2 H INR 1.76 H APTT Potassium BUN Glucose NT-Pro-B Natriuret Pep
[2018-12-03] MEDS: COUMADIN PO SCH (21:25)
[2018-12-03] MEDS: TYLENOL PO PRN (21:36)
[2018-12-04] MEDS: DUONEB *Not for PRN Use IH SCH ×2 (02:29→09:26)
[2018-12-04] MEDS: LASIX IV SCH ×2 (05:21→18:45)
[2018-12-04 06:32] LABS: Basophils # (Auto) 0.1 K/mm3 (0.0-0.1); Basophils % (Auto) 1.1 % (0.0-1.8); Eosinophils # (Auto) 0.3 K/mm3 (0.0-0.4); Eosinophils % (Auto) 5.1 % (0.0-4.3); Hematocrit 41.1 % (30.3-42.9); Hemoglobin 13.5 gm/dl (10.1-14.3); Lymphocytes # (Auto) 1.1 K/mm3 (1.2-5.4); Lymphocytes % (Auto) 20.9 % (13.4-35.0); Mean Corpuscular HGB Conc 33 % (30-34); Mean Corpuscular Volume 91 fl (79-97); Monocytes # (Auto) 0.7 K/mm3 (0.0-0.8); Monocytes % (Auto) 13.2 % (0.0-7.3); Platelet Count 129 K/mm3 (140-440); Red Blood Count 4.53 M/mm3 (3.65-5.03); Red Cell Distribution Width 16.6 % (13.2-15.2)
[2018-12-04 06:41] LABS: INR 1.03 (0.87-1.13)
[2018-12-04 06:52] LABS: BUN/Creatinine Ratio 13; Blood Urea Nitrogen 12 mg/dL (7-17); Calcium 9.3 mg/dL (8.4-10.2); Hemolysis Index 4
[2018-12-04] MEDS: APRESOLINE PO SCH ×3 (08:38→21:09)
[2018-12-04] MEDS: TOPROL XL PO SCH (09:03)
[2018-12-04] MEDS: NORVASC PO SCH (09:04)
[2018-12-04] MEDS: PROTONIX PO SCH (09:04)
[2018-12-04] MEDS: SENOKOT PO SCH (09:04)
[2018-12-04] MEDS: FEOSOL PO SCH (09:04)
[2018-12-04] MEDS: MUCINEX ER PO SCH ×2 (09:05→21:11)
[2018-12-04] MEDS: SODIUM CHLORIDE FLUSH SYRINGE 10 ML IV SCH ×2 (09:05→21:11)
[2018-12-04] MEDS ORDERED: K-DUR PO ONE (12:09)
--- NOTE | 2018-12-04 12:55 | Progress Note ---
Assessment and Plan Imp: 1. Dilated CMP 2. A/C systolic CHF 3. Pulm HTN, probably due to the above 4. Pleural effusion on R, suspect 2/2 to above; DDx includes parapneumonic, malignancy given ? mild loculation 5. Chronic atrial fib Rec: 1. Cont. Lasix 2. F/u PFA; unfortunately LDH and Protein are send-out tests; since she is now asymptomatic I would be okay with her going home and following up the final results in our office in 1 week, along with repeating a CXR to eval. for reaccumulation; please give her our office information for f/u, Plan of care reviewed with patient, she understands/agrees Subjective Date of service: 12/04/18 Principal diagnosis: Pleural effusion Interval history: Awake, alert. No SOB, chest pain, cough, sputum, new complaints. On RA. Active Medications Acetaminophen (Tylenol) 650 mg PO Q4H PRN PRN Reason: Pain MILD(1-3)/Fever >100.5/POLK Last Admin: 12/03/18 21:36 Dose: 650 mg Documented by: Albuterol/Ipratropium (Duoneb *Not For Prn Use*) 1 ampul IH Q6HRT [facility] Last Admin: 12/04/18 09:26 Dose: 1 ampul Documented by: Amlodipine Besylate (Norvasc) 10 mg PO QDAY [facility] Last Admin: 12/04/18 09:04 Dose: 10 mg Documented by: Atorvastatin Calcium (Lipitor) 20 mg PO QHS [facility] Last Admin: 12/03/18 21:06 Dose: 20 mg Documented by: Bisacodyl (Dulcolax) 10 mg AR QDAY PRN PRN Reason: Constipation unrelieved by MOM Ferrous Sulfate (Feosol) 325 mg PO DAILY [facility] Last Admin: 12/04/18 09:04 Dose: 325 mg Documented by: Furosemide (Lasix) 40 mg IV 0600,1800 [facility] Last Admin: 12/04/18 05:21 Dose: 40 mg Documented by: Guaifenesin (Mucinex Er) 600 mg PO BID [facility] Last Admin: 12/04/18 09:05 Dose: 600 mg Documented by: Hydralazine HCl (Apresoline) 50 mg PO TID [facility] Last Admin: 04/16/19 08:38 Dose: 50 mg Documented by: Magnesium Hydroxide (Milk Of Magnesia) 30 ml PO QDAY PRN PRN Reason: Constipation Last Admin: 12/03/18 17:20 Dose: 30 ml Documented by: Metoprolol Succinate (Toprol Xl) 100 mg PO QDAY [facility] Last Admin: 12/04/18 09:03 Dose: 100 mg Documented by: Ondansetron HCl (Zofran) 4 mg IV Q8H PRN PRN Reason: Nausea And Vomiting Pantoprazole Sodium (Protonix) 40 mg PO QDAY [facility] Last Admin: 12/04/18 09:04 Dose: 40 mg Documented by: Senna (Senokot) 8.6 mg PO Q24HR [facility] Last Admin: 12/04/18 09:04 Dose: 8.6 mg Documented by: Sodium Chloride (Sodium Chloride Flush Syringe 10 Ml) 10 ml IV BID [facility] Last Admin: 12/04/18 09:05 Dose: 10 ml Documented by: Sodium Chloride (Sodium Chloride Flush Syringe 10 Ml) 10 ml IV PRN PRN PRN Reason: LINE FLUSH Warfarin Sodium (Coumadin) 5 mg PO DAILY@1700 [facility] Last Admin: 12/03/18 21:25 Dose: 5 mg Documented by: Objective Vital Signs - 12hr 12/04/18 12/04/18 12/04/18 02:22 02:29 02:36 Temperature 98.6 F Pulse Rate 88 Pulse Rate [ 74 78 Anterior Bilateral Throughout] Respiratory 18 Rate Respiratory 18 18 Rate [Anterior Bilateral Throughout] Blood Pressure Blood Pressure 122/72 [Right] O2 Sat by Pulse 98 Oximetry 12/04/18 12/04/18 12/04/18 07:45 08:38 08:58 Temperature 99.0 F Pulse Rate 80 80 Pulse Rate [ Anterior Bilateral Throughout] Respiratory 16 18 Rate Respiratory Rate [Anterior Bilateral Throughout] Blood Pressure 130/79 130/79 Blood Pressure [Right] O2 Sat by Pulse 99 Oximetry 12/04/18 12/04/18 12/04/18 09:03 09:04 09:26 Temperature Pulse Rate 80 80 Pulse Rate [ 92 H Anterior Bilateral Throughout] Respiratory Rate Respiratory 18 Rate [Anterior Bilateral Throughout] Blood Pressure 130/79 130/79 Blood Pressure [Right] O2 Sat by Pulse Oximetry 12/04/18 12/04/18 09:27 09:36 Temperature Pulse Rate Pulse Rate [ 97 H Anterior Bilateral Throughout] Respiratory Rate Respiratory 18 Rate [Anterior Bilateral Throughout] Blood Pressure Blood Pressure [Right] O2 Sat by Pulse 99 Oximetry Constitutional: no acute distress, alert Eyes: non-icteric ENT: oropharynx moist Neck: supple Effort: normal Ascultation: Bilateral: clear Cardiovascular: irregular rhythm (no r/g; III/ systolic murmur throughout) Gastrointestinal: normoactive bowel sounds, soft, non-tender, non-distended Integumentary: normal Extremities: no cyanosis, no edema, pink and warm Neurologic: normal mental status, non-focal exam Psychiatric: mood appropriate, affect normal CBC and BMP: 12/04/18 05:52 12/04/18 05:52 ABG, PT/INR, D-dimer: PT/INR, D-dimer PT 14.1 Sec. (12.2-14.9) 12/04/18 05:52 INR 1.03 (0.87-1.13) 12/04/18 05:52 Abnormal lab findings: Abnormal Labs 11/29/18 11/29/18 11/29/18 21:27 21:27 21:27 WBC RDW 17.2 H Plt Count [place] % (Auto) 10.2 H Eos % (Auto) Lymph # PT 25.9 H INR 2.20 H APTT 39.0 H Potassium 5.9 H BUN 6 L Glucose NT-Pro-B Natriuret Pep 5874 H 11/30/18 11/30/18 11/30/18 03:28 03:28 03:28 WBC 4.3 L RDW 16.7 H Plt Count 120 L [place] % (Auto) 10.7 H Eos % (Auto) 4.4 H Lymph # 1.0 L PT 26.2 H INR 2.23 H APTT Potassium 3.5 L BUN Glucose 103 H NT-Pro-B Natriuret Pep 12/01/18 12/03/18 12/04/18 09:38 08:37 05:52 WBC RDW 16.6 H Plt Count 129 L [place] % (Auto) 13.2 H Eos % (Auto) 5.1 H Lymph # 1.1 L PT 21.7 H 15.2 H INR 1.76 H APTT Potassium BUN Glucose NT-Pro-B Natriuret Pep 12/04/18 05:52 WBC RDW Plt Count [place] % (Auto) Eos % (Auto) Lymph # PT INR APTT Potassium 3.3 L BUN Glucose NT-Pro-B Natriuret Pep Chest x-ray: report reviewed, image reviewed
--- NOTE | 2018-12-04 13:11 | Discharge Summary ---
Providers - Providers Date of Admission: 11/30/18 02:14 Attending physician: LEONEL COTTER MD 11/30/18 02:19 Consult to Physician [CONS] Routine Comment: called office/deepthi Consulting Provider: PROSPER VERDUZCO Physician Instructions: Reason For Exam: large loculated pleural effusion 11/30/18 10:41 Physical Therapy Evaluation and Treat [CONS] Routine Comment: Reason For Exam: weakness 12/03/18 19:47 Consult to Physician [CONS] Routine Comment: Consulting Provider: CHACORTA VALENCIA Physician Instructions: Reason For Exam: acute systolic congestive heart failure/25-30% Primary care physician: SCANNING CLERK Hospitalization Reason for admission: respiratory failure Condition: Stable Hospital course: 8 yr old F with PMH of Afib, 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 she started to cough yesterday- she is unable to bring up any phlegm but she says she feels it dripping behind throat. She reports having Chronic Allergic initial workup was consistent with large loculated right pleural effusion , acute on chronic combined systolic and diastolic congestive heart failure, cardiology consult placed , Patient was evaluated by pulmonary, underwent US guided right thoracentesis 700 mL removed ,Follow fluid analysis with milk runner outpatient. I did discuss with family all the findings or recommendations. Patient's respiratory status improved. Again I stressed the importance of follow-up milk runner for further evaluation of this large fluid. To show that there is no malignancy. Repeat Imaging was also stressed. Patient was also treated for congestive heart failure. Isosorbide was held. Patient required home oxygen repeat x-ray did not show any pneumothorax. Again this was discussed with patient's daughter. I discussed with discussion with family about patient does need to be on ARB due to congestive heart failure that would rather discuss this with the stonemason helper prior to initiation. Her concern is due to patient's cough Patient was ambulatory in the hospital prior to discharge. --Large loculated right pleural effusion; --Mild pericardial effusion; --Acute tracheobronchitis; -- A. fib.; Rate controlled, --Bioprosthetic MV: --Acute combined systolic and diastolic congestive heart failure; ejection fraction 25-30%, --Chronic anticoagulation on Coumadin Coumadin held for the procedure, resume Coumadin to target INR 2-3 --Dyslipidemia; Disposition: DC-01 TO HOME OR SELFCARE Time spent for discharge: 35 mins Core Measure Documentation - Palliative Care Palliative Care/ Comfort Measures: Not Applicable - Core Measures Any of the following diagnoses?: heart failure - Heart Failure Discharge Requirements KATELYNN/ARB for LVSD if EF <40%: No Reason for no KATELYNN/ARB: Patient refusal Beta clau at discharge: Yes Exam - Physical Exam Narrative exam: General appearance: Present: no acute distress, well-nourished - EENT Eyes: Present: PERRL, EOM intact - Neck Neck: Present: supple, normal ROM - Respiratory Respiratory effort: normal Respiratory: bilateral: diminished, negative: rhonchi, wheezing - Cardiovascular Rhythm: regular Heart Sounds: Present: S1 & S2 - Extremities Extremities: no ischemia, No edema - Abdominal General gastrointestinal: soft, non-tender, non-distended, normal bowel sounds - Integumentary Integumentary: Present: clear, warm - Psychiatric Psychiatric: appropriate mood/affect, cooperative - Neurologic Neurologic: CNII-XII intact, moves all extremities - Constitutional Vitals: Temp Pulse Resp BP Pulse Ox 99.0 F 97 H 18 130/79 99 12/04/18 07:45 12/04/18 09:36 12/04/18 09:36 12/04/18 09:04 12/04/18 09:27 Plan Activity: advance as tolerated, fall precautions Diet: low fat, low salt Special Instructions: restrict fluid intake to (1200CC/HR OR RECOMMENDED BY CARDIOLOGY), record daily weights, record daily BP diary, home oxygen via (nasal cannula @ 2 liters per minute) Durable Medical Equipment Needed Upon Discharge: Oxygen Follow up with: PRIMARY CARE, [Primary Care Provider] - 3-5 Days PATRICIA CRUZ MD [Staff Physician] - 7 Days CHACORTA VALENCIA MD [Staff Physician] - 7 Days Forms: Warfarin Discharge Instruction Prescriptions: Ipratropium/Albuterol Sulfate [DUONEB *Not for PRN Use*] 1 ampul IH Q6HRT #90 ampul.neb guaiFENesin ER [Mucinex ER] 600 mg PO BID 7 Days tablet Other Discharge Orders: Nebulizer (Amb) Location: None Selected
--- NOTE | 2018-12-04 15:00 | Consultation ---
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 She is followed by Dr. Dre Calderon at [place]. She presented on 11/29/2018 with c/o SOB. She was subsequently found to have large loculated right pleural effusion and underwent US guided right thoracentesis 700 mL removed. On evaluation, she denies any current cardiac complaints. LHC done 08/2017 showed trivial luminal irregularities, severely low cardiac output and severe systemic arterial hypertension. Severe TR contributing to poor forward cardiac output. Pt is a poor candidate for TV repair given her overall severe debility and worsening clinical dementia per Dr. Calderon. Echo done 12/02/2018 showed EF 25-30%, LA and RA severely dilated, RV dilated with reduced systolic function, mild to mod pulm HTN, well functioning bioprosthetic MV. Past History Past Medical History: atrial fib, hypertension. denies: hyperthyroidism Social history: lives with family. denies: smoking Family history: hypertension Medications and Allergies Allergies Allergy/AdvReac Type Severity Reaction Status Date / Time albuterol Allergy Unknown Verified 11/29/18 15:33 heparin Allergy Unknown Verified 11/29/18 15:33 Home Medications Medication Instructions Recorded Confirmed Last Taken Type Amlodipine Besylate [Norvasc] 10 mg PO QDAY 03/29/18 11/30/18 11/28/18 History AtorvaSTATin [Lipitor] 20 mg PO QHS 03/29/18 11/30/18 11/29/18 History Ferrous Sulfate [Iron 325 MG] 27 mg PO DAILY 03/29/18 11/30/18 11/29/18 History Furosemide [Lasix TAB] 40 mg PO QDAY 03/29/18 11/30/18 11/29/18 History Hydralazine HCl 50 mg PO TID 03/29/18 11/30/18 11/29/18 History Metoprolol Succinate [Toprol Xl] 100 mg PO QDAY 0811/30/18 11/29/18 History Pantoprazole [Protonix TAB] 40 mg PO QDAY 03/29/18 11/30/18 03/29/18 History Warfarin Sodium [Coumadin] 5 mg PO QDAY 03/29/18 11/30/18 11/28/18 History Ipratropium/Albuterol Sulfate 1 ampul IH Q6HRT #90 ampul.neb 12/04/18 Unknown Rx [DUONEB *Not for PRN Use*] guaiFENesin ER [Mucinex ER] 600 mg PO BID 7 Days tablet 12/04/18 Unknown Rx Active Meds: Active Medications Acetaminophen (Tylenol) 650 mg PO Q4H PRN PRN Reason: Pain MILD(1-3)/Fever >100.5/POLK Last Admin: 12/03/18 21:36 Dose: 650 mg Documented by: Albuterol/Ipratropium (Duoneb *Not For Prn Use*) 1 ampul IH Q6HRT [facility] Last Admin: 12/04/18 09:26 Dose: 1 ampul Documented by: Amlodipine Besylate (Norvasc) 10 mg PO QDAY [facility] Last Admin: 12/04/18 09:04 Dose: 10 mg Documented by: Atorvastatin Calcium (Lipitor) 20 mg PO QHS [facility] Last Admin: 12/03/18 21:06 Dose: 20 mg Documented by: Bisacodyl (Dulcolax) 10 mg DC QDAY PRN PRN Reason: Constipation unrelieved by MOM Ferrous Sulfate (Feosol) 325 mg PO DAILY [facility] Last Admin: 12/04/18 09:04 Dose: 325 mg Documented by: Furosemide (Lasix) 40 mg IV 0600,1800 [facility] Last Admin: 12/04/18 05:21 Dose: 40 mg Documented by: Guaifenesin (Mucinex Er) 600 mg PO BID [facility] Last Admin: 12/04/18 09:05 Dose: 600 mg Documented by: Hydralazine HCl (Apresoline) 50 mg PO TID [facility] Last Admin: 12/04/18 13:33 Dose: 50 mg Documented by: Magnesium Hydroxide (Milk Of Magnesia) 30 ml PO QDAY PRN PRN Reason: Constipation Last Admin: 12/03/18 17:20 Dose: 30 ml Documented by: Metoprolol Succinate (Toprol Xl) 100 mg PO QDAY [facility] Last Admin: 12/04/18 09:03 Dose: 100 mg Documented by: Ondansetron HCl (Zofran) 4 mg IV Q8H PRN PRN Reason: Nausea And Vomiting Pantoprazole Sodium (Protonix) 40 mg PO QDAY [facility] Last Admin: 12/04/18 09:04 Dose: 40 mg Documented by: Senna (Senokot) 8.6 mg PO Q24HR [facility] Last Admin: 12/04/18 09:04 Dose: 8.6 mg Documented by: Sodium Chloride (Sodium Chloride Flush Syringe 10 Ml) 10 ml IV BID [facility] Last Admin: 12/04/18 09:05 Dose: 10 ml Documented by: Sodium Chloride (Sodium Chloride Flush Syringe 10 Ml) 10 ml IV PRN PRN PRN Reason: LINE FLUSH Warfarin Sodium (Coumadin) 5 mg PO DAILY@1700 [facility] Last Admin: 12/03/18 21:25 Dose: 5 mg Documented by: Review of Systems Cardiovascular: shortness of breath (resolved), dyspnea on exertion (resolved), no chest pain Physical Examination Vital Signs Temp Pulse Resp BP Pulse Ox 97.4 F L 77 22 140/89 98 11/29/18 16:03 11/29/18 16:03 11/29/18 16:03 11/29/18 16:03 11/29/18 16:03 General appearance: no acute distress HEENT: Positive: PERRL, Normocephaly, Mucus Membranes Moist Neck: Positive: neck supple, trachea midline Cardiac: Positive: irregularly irregular, S1/S2, Systolic Murmur Lungs: Positive: Decreased Breath Sounds Neuro: Positive: Grossly Intact Abdomen: Positive: Soft. Negative: Tender Skin: Negative: Rash Musculoskeletal: No Pain Extremities: Absent: edema Results 12/04/18 05:52 12/04/18 05:52 Coagulation 12/04/18 Range/Units 05:52 PT 14.1 (12.2-14.9) Sec. INR 1.03 (0.87-1.13) CBC 12/04/18 Range/Units 05:52 WBC 5.1 (4.5-11.0) K/mm3 RBC 4.53 (3.65-5.03) M/mm3 Hgb 13.5 (10.1-14.3) gm/dl Hct 41.1 (30.3-42.9) % Plt Count 129 L (140-440) K/mm3 Lymph # 1.1 L (1.2-5.4) K/mm3 [place] # 0.7 (0.0-0.8) K/mm3 Eos # 0.3 (0.0-0.4) K/mm3 Baso # 0.1 (0.0-0.1) K/mm3 Comprehensive Metabolic Panel 12/04/18 Range/Units 05:52 Sodium 141 (137-145) mmol/L Potassium 3.3 L (3.6-5.0) mmol/L Chloride 98.1 (98-107) mmol/L Carbon Dioxide 30 (22-30) mmol/L BUN 12 (7-17) mg/dL Creatinine 0.9 (0.7-1.2) mg/dL Glucose 84 (65-100) mg/dL Calcium 9.3 (8.4-10.2) mg/dL - Imaging and Cardiology Echo: report reviewed (12/02/2018 showed EF 25-30%, LA and RA severely dilated, RV dilated with reduced systolic function, mild to mod pulm HTN, well functioning bioprosthetic MV. ) Cardiac cath: report reviewed ( showed severely low cardiac output and severe systemic arterial hypertension. Severe TR contributing to poor forward cardiac output. Pt is a poor candidate for TV repair given her overall severe debility and worsening clinical dementia per Dr. Calderon. 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 Cont home cardiac regimen, including coumadin with tx INR 2-3. Would prefer bridging of INR, however, pt states that she does not wish to administer lovenox injections as she has very little subcutaneous fat and has found these injections quite painful in the past. Also, she does not tolerate heparin gtt as she had reported GI bleed and almost "bled to " 8 years ago due to heparin gtt. Recommend INR check within 3-5 days and follow up with her primary piccolo mechanic, Dr. Dre Calderon at [place], within 1 week of hospital discharge. The patient has been seen in conjunction with Dr. Yung Browning who agrees with the assessment and plan of care.
--- NOTE | 2018-12-04 15:04 | XRay Report ---
AP CHEST: HISTORY: Shortness of breath Moderate cardiomegaly and trace right pleural effusion appear stable since yesterday's exam. The lungs are clear otherwise. No evidence for pneumonia or pneumothorax. The bony structures are grossly intact. IMPRESSION: Cardiomegaly. Trace right pleural effusion.
[2018-12-04] MEDS ORDERED: COUMADIN PO SCH (17:00)
[2018-12-04] MEDS: COUMADIN PO SCH (18:45)
[2018-12-04 20:07] VITALS: BP 128/71
[2018-12-05 08:54] LABS: LDH,Body Fluid 223; Total Protein,Body Fluid 4.1 (15.0-45.0)
== END 2018-12-04 21:25 | disposition home or self-care (01) | DRG 291 ==
LOC: ED 15:31 → 2B-ACE 11-30 02:14
PROVIDERS: ADMIT Hospitalist; ATTEND Internal Medicine
PROC: 0W993ZZ Drainage of Right Pleural Cavity, Percutaneous Approach (ICD-10-PCS; principal; 2018-12-03)
DX: I13.0 Hypertensive heart and chronic kidney disease with heart failure and stage 1 through stage 4 chronic kidney disease, or unspecified chronic kidney disease (principal); I50.43 Acute on chronic combined systolic (congestive) and diastolic (congestive) heart failure; J90 Pleural effusion, not elsewhere classified; I31.3 Pericardial effusion (noninflammatory); J20.9 Acute bronchitis, unspecified; E78.5 Hyperlipidemia, unspecified; I25.10 Atherosclerotic heart disease of native coronary artery without angina pectoris; J30.9 Allergic rhinitis, unspecified; N18.9 Chronic kidney disease, unspecified; E11.22 Type 2 diabetes mellitus with diabetic chronic kidney disease; E11.51 Type 2 diabetes mellitus with diabetic peripheral angiopathy without gangrene; I42.8 Other cardiomyopathies; F03.90 Unspecified dementia, unspecified severity, without behavioral disturbance, psychotic disturbance, mood disturbance, and anxiety; D69.6 Thrombocytopenia, unspecified; I27.20 Pulmonary hypertension, unspecified; I42.0 Dilated cardiomyopathy; I48.2 Chronic atrial fibrillation; Z95.810 Presence of automatic (implantable) cardiac defibrillator; Z79.01 Long term (current) use of anticoagulants; Z82.49 Family history of ischemic heart disease and other diseases of the circulatory system; Z79.899 Other long term (current) drug therapy; I25.2 Old myocardial infarction; Z98.51 Tubal ligation status; Z95.2 Presence of prosthetic heart valve
CPT/HCPCS: 32555; 36415; 71045; 71046; 71250; 80048; 81001; 83605; 83735; 83880; 84132; 84160; 84484; 85025; 85610; 85652; 85730; 87116; 88112; 88305; 88341; 88342; 89051; 93005; 93010; 93306; 94640; G0378; A9270-GY; J0692; J1940; J1956